=== PATIENT | female | born 2000 | race Caucasian/White ===

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

== ENCOUNTER 2022-01-24 13:04 | Emergency (ER) | payer MEDICAID, SELFPAY ==
[2022-01-24 13:05] VITALS: BP 113/76; PULSE 87; RESP 16; TEMP 36.2; O2SAT 96; BMI 23.8
--- NOTE | 2022-01-24 13:40 | EDS_ITS ---
HPI HPI - Female History of Present Illness Chief Complaint: Flank Pain Informant: patient Pain Quality: Positive for Cramping Current Severity: Gone Maximum Severity: Mild Bleeding Issue: Negative for Vaginal bleeding, Passing clots and Passing tissue Associated Symptoms Associated Symptoms: Negative for Dysuria, Frequency, Urgency and Hematuria Test: Positive Sexually: Positive for Active Control: No control P: 0 Ab: 0 Narrative Narrative: 21-year-old female history currently 11 weeks . Due date is August 16, 2022. She is G1, P0 Ab0. History of polycystic ovarian syndrome. Reportedly Rh-. Patient states she has had some intermittent cramping. Denies vaginal bleeding or discharge. Had nausea and vomiting x1 today. Denies any vaginal bleeding. No fever. No dysuria. She has had 3 ultrasound so far for this . Says she has a known single live IUP. [facility] she is changing her [facility] [facility]PER[facility] from [place] here to [place]. Prior similar symptoms: No Recent Illness/Hospitalization: No PFSH PFSH Medical History no medical history no medical history Home Medications sulfamethoxazole-trimethoprim 1 tab PO BID #10 tab 10/24/19 [Rx Last Taken Unknown] Allergy/AdvReac Type Severity Reaction Status Date / Time No Known Allergies Allergy Verified 01/24/22 13:06 Surgical History no surgical history Social History Smoking Status: Never smoker ROS ROS ED ROS Narrative Nausea vomiting. Cramping. Review of Systems ROS Unobtainable: Denies due to encephalopathy Constitutional Constitutional ED: Denies fever(s) Eyes Eyes: Denies change in vision ENT ENT ED: Denies ear pain Cardiovascular Cardiovascular: Denies chest pain Respiratory/Chest Respiratory/Chest: Denies dyspnea Gastrointestinal Gastrointestinal: Reports nausea and vomiting; Denies abdominal pain, constipation or diarrhea Genitourinary Genitourinary ED: Denies dysuria Musculoskeletal Musculoskeletal: Denies myalgias Integumentary Denies rash Neurologic Neurologic: Denies headache(s) Psychiatric Psychiatric: Denies depression Endocrine Endocrinology: Denies polyuria Hematologic/Lymphatic Hematologic/Lymphatic: Denies easy bruising Allergic/Immunologic Allergic/Immunologic ED: Denies urticaria EXAM Physical Exam Narrative Exam Narrative: 21-year-old female no acute distress. Vital signs stable afebrile. H EENT exam unremarkable. Neck nontender. Lungs clear to auscultation bilaterally. Heart regular rhythm no murmur. Abdomen soft. Nontender. Nondistended. Normal bowel sounds. No peritoneal signs. Gravid nontender uterus. Moving all 4 extremities. Nontender no edema. Back nontender. Neurologically she is awake and alert. Const Vital Signs: 01/24/22 13:05 Temperature 97.2 F L Temperature Source Temporal Pulse Rate 87 Respiratory Rate 16 Blood Pressure 113/76 Blood Pressure Mean 88 Pulse Ox 96 Oxygen Delivery Method Room Air Positive well nourished and well developed; Negative for obese, cachectic, contractures or unkempt General Appearance ED: well developed and NAD; Negative for unkempt, cachectic, contractures or pallor Nutritional Appearance: Negative for cachectic or obese HEENT Reports moist mucous membranes Negative for trauma or tenderness Eyes PERRL and EOMs intact bilaterally General Eye ED: Negative for pale conjunctiva or scleral icterus Neck no lymphadenopathy, supple and no JVD Thyroid: Negative for tender Chest Wall inspection of chest normal and palpation of chest normal Resp normal respiratory effort and clear to auscultation bilaterally Effort and Inspection: Negative for pain with movement Auscultation: Negative for rales, rhonchi or wheezes Cardio regular rate, regular rhythm, S1 normal heart sound, no murmurs and no JVD Rhythm: Negative for abnormal rhythm GI normal to inspection, nondistended, normoactive bowel sounds, soft to palpation, non-tender, non-distended and no masses Auscultation: normoactive bowel sounds; Negative for hyperactive bowel sounds or hypoactive bowel sounds Palpation: Negative for tender, guarding or rigid Back/Spine no CVA tenderness General Back: Negative for CVA tenderness Cervical Spine: Negative for cervical spine tenderness Thoracic Spine / Upper Back: Negative for thoracic spinal tenderness Lumbar Spine / Lower Back: Negative for lumbar spinal tenderness Extremity normal to inspection and full ROM General Extremety ED: Negative for edema or tenderness General Extremity: Negative for edema Neuro oriented x3 Sensorium / Orientation: alert, oriented to person, oriented to place and oriented to time Motor Exam: strength 5/5 throughout Psych mental status grossly normal Appearance: Negative for unkempt Mood & Affect: Negative for depressed or tearful Skin no rashes or lesions noted and no wounds General Skin Exam: Negative for jaundice or pallor MDM MDM MDM Narrative Medical decision making narrative: 21-year-old female 11 weeks . Complaining of flank pain that is since resolved. Denies any dysuria. Had nausea and vomiting x1 today. Denies any vaginal bleeding. Has had prior ultrasound showing a single live IUP with this . Repeat exam she is doing well at 2:27 PM. She will be discharged to home. Follow-up with your [employer] SUPERVISOR. Tylenol for pain. Return if worse. Lab Data Attestation: I reviewed the patient's lab results. Lab results narrative: Heart tones per nursing were 146. Urinalysis shows no nitrites no white cells. No red cells. And only 1+ bacteria. Labs: Laboratory Results - last 24 hr 01/24/22 14:00 Urine Color Yellow Urine Clarity Clear Urine pH 6.5 Ur Specific [place] 1.020 Urine Protein 15 H Urine Glucose (UA) Normal Urine Ketones Negative Urine Occult Blood Negative Urine Nitrite Negative Urine Bilirubin Negative Urine Urobilinogen Normal Ur Leukocyte Esterase Negative Urine RBC 0 SEEN Urine WBC 0 SEEN Ur Squamous Epith Cells 0-5 SEEN Urine Bacteria 1+ Urine Mucus 1+ Discharge Plan Triage Chief Complaint: Flank Pain Other Complaint: Nausea/Vomiting ED Provider: Travis Sanchez Dx/Rx/DC Orders Clinical Impression: Abdominal pain, First trimester , Hx of polycystic ovarian syndrome Instructions: Abdominal Pain, First Trimester Prescriptions: No Action sulfamethoxazole-trimethoprim 1 TABLET tablet 1 tab PO BID Qty: 10 RF: 0 Primary Care Provider: Minor Rucker Referrals: Minor Rucker DO [Primary Care Provider] - Inga Jason MD [STAFF PHYSICIAN] - Keep [place] appointment Activity Restrictions/Additional Instructions: Urine showed no signs of infection. heart tones have been normal. Tylenol for pain. Follow-up with your scheduled [facility]. Disposition Disposition: Home, Self Care
[2022-01-24 14:08] LABS: Red Blood Cells-Urine 0 SEEN /hpf (0-5); White Blood Cells 0 SEEN /hpf (0-5)
[2022-01-24 14:09] LABS: Color, Urine Yellow (Yellow); Glucose, Dipstick Normal (Normal); Ketone-Dipstick Negative (Negative); Leukocyte Esterase-Dipstick Negative /ul (Negative); Nitrite-Dipstick Negative (Negative); Occult Blood-Urine Negative /ul (Negative); Protein-Dipstick 15 mg/dl (Negative); Urine Bilirubin Dipstick Negative (Negative); Urine Clarity Clear (Clear); Urine Urobilinogen Normal (Normal); Urine pH 6.5 (5.0 - 8.0)
[2022-01-24 14:21] LABS: Bacteria 1+ /hpf (None Seen); Mucous, Urine 1+ /hpf (<or=2+); Squamous Epithelial Cells - UA 0-5 SEEN /hpf (5-10)
[2022-01-24 15:15] VITALS: BP 134/69; PULSE 72; RESP 15; O2SAT 99
== END 2022-01-24 15:15 | disposition home or self-care (01) ==
PROVIDERS: Emergency Provider Emergency Medicine; PCP Pediatrics; Visit Provider Emergency Medicine
DX: O26.891 Other specified pregnancy related conditions, first trimester (principal); R10.9 Unspecified abdominal pain; Z3A.11 11 weeks gestation of pregnancy
CPT/HCPCS: 81001; 99282

== ENCOUNTER 2022-01-26 14:21 | Emergency (ER) | payer MEDICAID, SELFPAY ==
[2022-01-26 14:22] VITALS: BP 127/91; PULSE 76; RESP 15; TEMP 36.6; O2SAT 98; BMI 23.0
--- NOTE | 2022-01-26 14:49 | CT_ITS ---
STUDY: CT ABDOMEN AND PELVIS WITH CONTRAST REASON FOR EXAM: Female, 21 years old. Right lower quadrant RADIATION DOSAGE (If Supplied By Facility): CTDIvol = ( 12.17 ) mGy, DLP = ( 576.07 ) mGycm TECHNIQUE: Transaxial images were obtained from the dome of the diaphragm to the symphysis pubis with oral contrast. Oral and amp; IV Gastrografin and amp; 100mL Isovue-300 was administered. Sagittal and coronal images were reconstructed. Individualized dose optimization techniques were used for this CT. COMPARISON: None. FINDINGS: The visualized lung bases are unremarkable. The visualized portions of the heart are within normal limits. Normal liver. Normal gallbladder and extrahepatic biliary system. Normal spleen. Normal pancreas. Normal bilateral adrenal glands. Normal right kidney. Normal left kidney. Normal visualized stomach. Normal small intestine. Normal colon. The appendix is seen on coronal recon images 47 through 53. The distal two thirds of the appendix are fluid-filled and shows some wall enhancement, diameter however the appendix is only 4.6 mm. Findings suggest early changes of appendicitis though there is no evidence of a full minute acute appendicitis. There is no induration of the periappendiceal fat there are no lymph nodes or associated fluid. Normal abdominal aorta. Normal inferior vena cava. Normal retroperitoneum. Normal urinary bladder. There is a gravid uterus. Normal abdominal wall. Normal osseous structures. CT/Abdomen/Pelvis WITH Contrast IMPRESSION: No suspicious solid organ abnormality No free intraperitoneal fluid, air, or suspicious adenopathy, there is subtle abnormality of the distal two thirds of the appendix which is fluid-filled and shows some subtle enhancement. However, no periappendiceal inflammation adenopathy or free fluid in the diameter of the appendix is 4.6 mm. Gravid uterus Electronically Signed: Elliott Espinoza MD at 17:07 EDT ,
--- NOTE | 2022-01-26 14:50 | EDS_ITS ---
HPI History of Present Illness Chief Complaint: Abd Pain Narrative Narrative: 21-year-old female who is currently 13 weeks comes to the emergency department for concern of appendicitis. She was recently seen by her HAND COMPOSITOR today, he referred her here for a CT scan of the abdomen pelvis to rule out any appendicitis, kidney stone. Patient did have heart tones completed at the HAND COMPOSITOR office, these were normal. Patient did have a normal ultrasound 2 weeks ago with her previous OB. Patient states that this pain has been ongoing for the last 5 days, getting much worse. Patient states that she cannot stand straight, she has increased pain with walking, every time she eats she feels very nauseated. Patient denies any fevers however does state to have chills. Denies any blood in stool or vomit PFSH PFSH Home Medications sulfamethoxazole-trimethoprim 1 tab PO BID #10 tab 10/24/19 [Rx Last Taken Unknown] cefdinir 300 mg PO BID 7 Days #14 cap 01/26/22 [Rx Last Taken Unknown] metronidazole 500 mg PO TID 7 Days #21 tab 01/26/22 [Rx Last Taken Unknown] ondansetron 4 mg PO Q8H PRN #10 tab 01/26/22 [Rx Last Taken Unknown] Allergy/AdvReac Type Severity Reaction Status Date / Time No Known Allergies Allergy Verified 01/26/22 14:25 Social History Smoking Status: Never smoker ROS ROS ED ROS Narrative Constitutional: Negative for fever, chills, weight loss, weakness Eyes: Negative for vision loss, vision change, double vision ENT: Negative for any sore throat, ear pain, congestion Cardiovascular: Negative for any chest pain, tightness, palpitations, racing heartbeat Respiratory: Negative for any cough, sputum production, hemoptysis, shortness of breath, shortness of breath on exertion, orthopnea Gastrointestinal: Negative for any diarrhea, constipation, blood in stool, blood in vomit. Positive for right lower quadrant abdominal pain, nausea and vomiting : Negative for any urinary frequency, incontinence, dysuria, retention, blood in urine Muscle skeletal: Negative for any muscle joint pain, stiffness, myalgias, arthralgias, neck pain, back pain Neurological: Negative for any headache, dizziness, syncope, numbness or tingling Skin: Negative for any rashes, lumps, itching, abrasions, lacerations Psychiatric: Negative for any depression, anxiety, stress, suicidal ideation, homicidal ideation Hematologic: Negative for any easy bruising, excessive bruising, easy bleeding Allergies: Negative for any eczema, hives, rash EXAM Physical Exam Narrative Exam Narrative: Vital signs reviewed. Patient appears well, patient appears nontoxic, vital signs are stable. HEET: Head normocephalic atraumatic, TMs clear bilaterally. Posterior pharynx is clear, moist mucous membranes. Nares clear bilaterally. Neck: Supple with no lymphadenopathy or tenderness. No signs of meningismus, n egative jolt sign. Cardiac: Regular rate and rhythm no murmurs gallops or rubs, equal peripheral pulses bilaterally. Respiratory: Lungs clear to auscultation bilaterally. No chest tenderness. Abdomen: Soft, nondistended. No abdominal bruit or pulsatile masses. No hepatosplenomegaly. Patient has right lower quadrant, suprapubic abdominal pain. Negative for any CVA tenderness. Extremities: No peripheral edema, no signs of gross trauma or deformity. Active full range of motion of all extremities. Neuro: Cranial nerves II through XII intact, no focal neurological deficits. Skin: Clean dry and intact with no rash, purpura, petechiae, vesicles or pustules. Backslash flank: No CVA tenderness, no midline spinal tenderness, no deformity. Psych: Normal mood and affect. No SI, HI or acute psychosis. Const Vital Signs: 01/26/22 14:22 01/26/22 17:15 Temperature 98 F Temperature Source Temporal Pulse Rate 76 Respiratory Rate 15 18 Blood Pressure 127/91 H Blood Pressure Mean 103 Pulse Ox 98 Oxygen Delivery Method Room Air Positive well nourished and well developed General Appearance ED: well developed MDM MDM MDM Narrative Medical decision making narrative: Patient appears well, patient appears nontoxic, vital signs are stable. Patient presents the emerge department with 5 days of right lower quadrant abdominal pain, she was referred here by her HAND COMPOSITOR to get a CT scan to rule out any acute appendicitis. Patient did receive a full work-up, patient CBC was unremarkable, patient's chemistries showed no acute process. Patient's urinalysis was negative for any infection. Patient did receive a CT scan of the abdomen pelvis with IV and p.o. contrast, this showed no free intraperitoneal fluid, air or suspicious adenopathy. There is subtle abnormality of the distal two thirds of the appendix which is fluid-filled and shows some subtle enhancement. However no periappendiceal inflammation adenopathy or free fluid in the diameter of the appendix is 4.6 mm. uterus. Patient did feel better after IV fluid, IV Zofran. I did speak with the surgeon, he agrees that this is not acute appendicitis however does recommend oral antibiotics. I spoke with the patient's HAND COMPOSITOR, she also agrees the patient can be placed on antibiotics and will follow up closely in 2 days. On reassessment, patient was in no distress, I told the patient and her mother the plan, they are both happy with the plan of care. Patient be placed on Flagyl 3 times a day, cefdinir twice a day for 1 week. She will follow up closely with HAND COMPOSITOR, and given strict return precautions to return for any worsening pain, fever, chills, nausea vomiting. Patient is stable for discharge Lab Data Attestation: I reviewed the patient's lab results. Labs: Laboratory Results - last 24 hr 01/26/22 01/26/22 01/26/22 15:30 15:30 17:10 WBC 10.7 RBC 4.70 Hgb 13.9 Hct 39.4 MCV 83.8 MCH 29.6 MCHC 35.3 RDW Std Deviation 37.5 RDW Coeff of Sandra 12.4 Plt Count 265 MPV 9.4 Immature Gran % (Auto) 0.500 Neut % (Auto) 68.2 Lymph % (Auto) 23.8 Thomas % (Auto) 6.0 Eos % (Auto) 1.1 Baso % (Auto) 0.4 Absolute Neuts (auto) 7.3 Absolute Lymphs (auto) 2.54 Nucleated RBC % 0 Sodium 135 L Potassium 3.6 Chloride 105 Carbon Dioxide 23.0 Anion Gap 7 BUN 10 Creatinine 0.57 Estim Creat Clear Calc 153.10 Est GFR (MDRD) Af Amer 173 Est GFR (MDRD) Non-Af 143 BUN/Creatinine Ratio 17.5 Glucose 78 Calcium 9.4 Total Bilirubin 0.60 AST 15 ALT 19 Alkaline Phosphatase 67 Total Protein 7.9 Albumin 3.8 Globulin 4.1 Albumin/Globulin Ratio 0.9 Lipase 49 L Urine Color Yellow Urine Clarity Clear Urine pH 7.0 Ur Specific [place] 1.010 Urine Protein Negative Urine Glucose (UA) Normal Urine Ketones 15 H Urine Occult Blood Negative Urine Nitrite Negative Urine Bilirubin Negative Urine Urobilinogen Normal Ur Leukocyte Esterase Negative Urine RBC 0 SEEN Urine WBC 0-5 SEEN Ur Squamous Epith Cells 0-5 SEEN Urine Bacteria RARE Urine Mucus 0 SEEN Radiography Diagnostic Testing: Clinical Impression(s) from Imaging Studies Abdomen/Pelvis CT 01/26/22 14:49 IMPRESSION: No suspicious solid organ abnormality No free intraperitoneal fluid, air, or suspicious adenopathy, there is subtle abnormality of the distal two thirds of the appendix which is fluid-filled and shows some subtle enhancement. However, no periappendiceal inflammation adenopathy or free fluid in the diameter of the appendix is 4.6 mm. Gravid uterus Electronically Signed: Elliott Espinoza MD at 17:07 EDT , Discharge Plan Triage Chief Complaint: Abd Pain ED Midlevel Provider: Arsenio Schmidt ED Provider: Arsenio Benz Dx/Rx/DC Orders Clinical Impression: Abdominal pain Instructions: Abdominal Pain Prescriptions: New cefdinir 300 mg capsule 300 mg PO BID 7 Days Qty: 14 RF: 0 metronidazole 500 mg tablet 500 mg PO TID 7 Days Qty: 21 RF: 0 ondansetron 4 mg tablet,disintegrating 4 mg PO Q8H PRN (Reason: nausea and vomiting) Qty: 10 RF: 0 No Action sulfamethoxazole-trimethoprim 1 TABLET tablet 1 tab PO BID Qty: 10 RF: 0 Stand Alone Forms: ED Work / School Excuse Primary Care Provider: Minor Rucker Referrals: Minor Rucker DO [Primary Care Provider] - Activity Restrictions/Additional Instructions: Please take medications as prescribed. Please follow-up with your HAND COMPOSITOR this upcoming Saturday Print Language: Korean Disposition Disposition: Home, Self Care
[2022-01-26] MEDS: 0.9% Normal Saline 1,000 ML 1000 ML IV (15:30)
[2022-01-26] MEDS: Ondansetron 4 MG/2 ML Vial IV (15:30)
[2022-01-26 15:41] LABS: Absolute Lymphocyte Count 2.54 X10^3/uL (0.83-4.51); Absolute Neutrophil Count 7.3 X10^3/uL (2.0-7.7); Basophil# 0.04 X10^3/uL; Basophil% 0.4 % (0-1); Eosinophil# 0.12 X10^3/uL; Eosinophils% 1.1 % (0-5); Hematocrit 39.4 % (37-47); Hemoglobin 13.9 g/dL (12.0-15.0); Lymphocyte # 2.54 X10^3/ul (0.83-4.51); Lymphocyte % 23.8 % (19-41); Mean Corp Hgb Conc 35.3 g/dL (32-36); Mean Corpuscular Hgb 29.6 pg (27.0-32.0); Mean Corpuscular Volume 83.8 fL (81-99); Mean Platelet Vol. 9.4 fl (6.2-12.0); Monocyte# 0.64 X10^3/uL; NRBC Flagged by Analyzer 0 % (0-5); Neutrophil # 7.29 X10^3/uL (2.7-7.7); Neutrophil % 68.2 % (47-70); Platelet Count 265 K/mm3 (150-450); RBC Distribution Width CV 12.4 % (11.6-14.6); RBC Distribution Width SD 37.5 fl (35.1-43.9); White Blood Count 10.7 K/mm3 (4.4-11.0)
[2022-01-26 16:18] LABS: ALB/GLOB Ratio 0.9 RATIO (0.9-2.4); AST(SGOT) 15 U/L (15-37); Alanine Aminotransfer ALT/SGPT 19 U/L (13-56); Albumin, Serum 3.8 g/dL (3.2-5.0); Alkaline Phosphatase 67 U/L (45-117); Anion Gap 7 (5-15); BUN 10 mg/dL (7-18); BUN/Creat Ratio 17.5 RATIO (10-20); Calcium,Total 9.4 mg/dL (8.5-10.1); Chloride 105 mmol/L (98-107); Creatinine, Serum 0.57 mg/dL (0.55-1.02); EST Glomerular Filtration Rate 143 mL/min (>60); Est Glom Filt Rate - Afr Amer 173 mL/min (>60); Globulin 4.1 g/dL (2.2-4.2); Glucose 78 mg/dL (74-106); Lipase 49 U/L (73-393); Potassium 3.6 mmol/L (3.5-5.1); Protein, Total 7.9 g/dL (6.4-8.2); Sodium Level 135 mmol/L (136-145)
[2022-01-26 17:15] VITALS: RESP 18
[2022-01-26 17:20] LABS: Mucous, Urine 0 SEEN /hpf (<or=2+); Red Blood Cells-Urine 0 SEEN /hpf (0-5)
[2022-01-26 17:23] LABS: Color, Urine Yellow (Yellow); Glucose, Dipstick Normal (Normal); Ketone-Dipstick 15 mg/dl (Negative); Leukocyte Esterase-Dipstick Negative /ul (Negative); Nitrite-Dipstick Negative (Negative); Occult Blood-Urine Negative /ul (Negative); Protein-Dipstick Negative (Negative); Urine Bilirubin Dipstick Negative (Negative); Urine Clarity Clear (Clear); Urine Urobilinogen Normal (Normal)
[2022-01-26 17:39] LABS: Bacteria RARE /hpf (None Seen); Squamous Epithelial Cells - UA 0-5 SEEN /hpf (5-10); White Blood Cells 0-5 SEEN /hpf (0-5)
[2022-01-26 18:32] VITALS: BP 118/59; PULSE 71; RESP 16; O2SAT 98
== END 2022-01-26 18:32 | disposition home or self-care (01) ==
PROVIDERS: Nurse Practitioner; Emergency Provider Emergency Medicine; PCP Pediatrics; Visit Provider Emergency Medicine
DX: O26.891 Other specified pregnancy related conditions, first trimester (principal); R10.9 Unspecified abdominal pain; Z3A.13 13 weeks gestation of pregnancy
CPT/HCPCS: 74177; 80053; 81001; 83690; 85025; 96361; 96374; 99283; J7030; A4216; J2405

== ENCOUNTER 2022-08-02 16:50 | Inpatient (IN) | payer MEDICAID, SELFPAY ==
[2022-08-02] VITALS (15 sets, daily range): BP systolic 138–177; BP diastolic 80–107; PULSE 64–93; TEMP 36.7–37.1; O2SAT 97; BMI 29.5
[2022-08-02] MEDS: 0.9% Saline Lock 10 ML Syringe IV (16:31)
--- NOTE | 2022-08-02 16:45 | HP.PCM.OB_ITS ---
HPI - General General Date of Admission: 08/02/22 Date of Service: 08/02/22 HPI Narrative LORE BUTLER, is a 21 F who presents from office. She had a headache earlier today that has resolved. Maternal Data Information Final KIM: 08/13/22 Gestational age: 38&3 PFSH PFSH Medical History (Updated 08/02/22 @ 18:14 by Teena Mckeon) Asthma Depression Preeclampsia Home Medications vits no.130-ferrous fum 27 mg iron-folic acid 800 mcg tablet ( Vitamin) tab 08/02/22 [History Last Taken Unknown] Allergy/AdvReac Type Severity Reaction Status Date / Time No Known Allergies Allergy Verified 01/26/22 14:25 Social History Smoking Status: Former smoker History Elective abortions Hx Para 0 Spontaneous abortions Hx # Term Pregnancies Ectopic pregnancies Hx # Pregnancies Multiple births # of living children NST FHR Rate Baby A Baseline: 135 Variability:: Moderate Accelerations:: 15 x 15 Decelerations:: None Uterine Activity:: quiet Vital Signs Vital Signs Vital Signs: 08/02/22 16:26 08/02/22 16:26 08/02/22 16:26 Temperature Temperature Source Pulse Rate 87 Blood Pressure 142/98 H BP Systolic 142 BP Diastolic 98 Pulse Ox 97 08/02/22 16:26 08/02/22 16:26 08/02/22 16:26 Temperature 98.8 F Temperature Source Temporal Pulse Rate 93 Blood Pressure BP Systolic BP Diastolic Pulse Ox 08/02/22 16:31 08/02/22 16:31 08/02/22 16:36 Temperature Temperature Source Pulse Rate 88 Blood Pressure 154/93 H BP Systolic 154 BP Diastolic 93 Pulse Ox 97 08/02/22 16:36 Temperature Temperature Source Pulse Rate 77 Blood Pressure BP Systolic BP Diastolic Pulse Ox Weight Weight: 188 lb 11.451 oz Body Mass Index (BMI) 29.5 Physical Exam Narrative: cvx - 3/70/-3 Labs Labs Labs: Blood Type O NEGATIVE Antibody Screen NEGATIVE Hct 33.1 % (37-47) L Hgb 11.0 g/dL (12.0-15.0) L See [facility] H&P Assessment & Plan (1) Preeclampsia: COMMENT: @ 38&3 PLAN: Admit to L&D Preeclampsia labs pending. Per elevated protein & elevated BP patient meets d iagnostic criteria. Induction - will start pitocin later tonight GBS negative EFW - less than 4500g, patient with adequate pelvis COVID test ordered Routine care
[2022-08-02 16:57] LABS: Hematocrit 33.1 % (37-47); Mean Corp Hgb Conc 33.2 g/dL (32-36); Mean Corpuscular Hgb 28.3 pg (27.0-32.0); Mean Corpuscular Volume 85.1 fL (81-99); Mean Platelet Vol. 11.3 fl (6.2-12.0); Platelet Count 219 K/mm3 (150-450); RBC Distribution Width CV 13.9 % (11.6-14.6); RBC Distribution Width SD 41.6 fl (35.1-43.9); Red Blood Count 3.89 M/mm3 (4.2-5.4); White Blood Count 10.9 K/mm3 (4.4-11.0)
[2022-08-02 17:14] LABS: AST(SGOT) 21 U/L (15-37); Alanine Aminotransfer ALT/SGPT 18 U/L (13-56); Creatinine, Serum 0.66 mg/dL (0.55-1.02); EST Glomerular Filtration Rate 120 mL/min (>60); Est Glom Filt Rate - Afr Amer 145 mL/min (>60); Estimated Creatinine Clearance 132.22 ml/min; Uric Acid 6.7 mg/dL (2.6-6.0)
[2022-08-02] MEDS: Lactated Ringers 1,000 ML 50 ML IV (22:38)
[2022-08-02] MEDS: Oxytocin 15 Units/NS 250ml 15 UNITS/250 ML IV.SOLN 2 UNITS IV (22:41)
[2022-08-03] VITALS (57 sets, daily range): BP systolic 119–178; BP diastolic 56–109; PULSE 57–103; RESP 15–19; TEMP 36.2–37.6; O2SAT 91–100
[2022-08-03] MEDS: LACTATED RINGERS 500 ML 999 ML IV ×3 (04:28→12:21)
--- NOTE | 2022-08-03 08:48 | PCM.PN.BLA ---
Progress Note Pt doing well. Resting comfortable but feeling ctx's. Assessment & Plan Assessment/Plan (1) Preeclampsia: PLAN: No persistent severe range BP's. Mild to normal BP's. She has no pre e symptoms this morning. Cvx 460/-1, head well applied. AROM performed in usual fashion with return of clear fluid. IUPC placed. Category 1 tracing.
[2022-08-03] MEDS: Lactated Ringers 1,000 ML 50 ML IV (09:03)
[2022-08-03] MEDS: fentaNYL-bupivacaine (epidural) 100 ML BAG EPIDURAL (14:07)
[2022-08-03] MEDS: Lactated Ringers 1,000 ML 200 ML IV (16:20)
--- NOTE | 2022-08-03 18:11 | PCM.PN.BLA ---
Progress Note Pt pushing with RN in hands and knees. She offers no complaints at this time. Comfortable with epidural. Assessment & Plan Assessment/Plan (1) Preeclampsia: PLAN: - No persistent severe range BP's - She still has no symptoms of pre e - Continue to closely monitor and discussed possible mag gtt if needed (2) 38 weeks gestation of : PLAN: - Patient has been pushing for about 3 hours - Good maternal pushing effort - Will reassess station once out of hands and knees
[2022-08-03] MEDS: Labetalol (Prefilled) 20 MG/4 ML IV (19:05)
[2022-08-03] MEDS: Magnesium Sulfate 4gm/100mL 4 GM/100 ML IV.SOLN. IV (19:12)
[2022-08-03] MEDS: Sodium Citrate/Citric Acid 30 ML UDC PO (19:22)
[2022-08-03] MEDS: Magnesium Sulfate 20 GM/500 ML BAG IV (19:27)
[2022-08-03] MEDS: Cefazolin 2 GM in 0.9% Normal Saline 100 ML IV (19:31)
--- NOTE | 2022-08-03 20:43 | PCM.PN.BLA ---
Progress Note Delayed entry. At bedside to check on pt. Comfortable with epidural. Assessment & Plan Assessment/Plan (1) 38 weeks gestation of : PLAN: Patient has been pushing for 4 hours with good effort. at 0 station. Recommend section for arrest of descent. Discussed r/b/a to a section and patient desires to proceed. (2) Preeclampsia:
--- NOTE | 2022-08-03 20:45 | PCM.OPRPT ---
Problems Associated Problem List Diagnoses (1) 38 weeks gestation of : (2) Preeclampsia: Report of Operation Date of Procedure: 08/03/22 Pre-Operative Diagnosis: 38 week gestation, pre eclampsia with severe features, arrest of descent Post-Operative Diagnosis: As above CPD Surgery/Procedure Performed:: Primary low transverse section via pfannenstiel incision Description of Surgical Findings:: VMI in cephalic presentation. Narrow pelvis and CPD noted. Normal appearing uterus and bilateral adnexa. Normal appearing placenta with 3 VC. Surgeon: Kate Farias sulfonation equipment operator: Daron Gallegos sulfonation equipment operator: Justin ROMAN Type of Anesthesia: Epidural Special Medications: None Specimen's removed: Placenta Drains: Quesada Estimated Blood Loss (mL): 800 Fluids Replaced: 750 cc Description of Procedure: The patient was taken back to the operating room where epidural anesthesia was found to be adequate. She was prepped and draped in the dorsal position with leftward tilt. A Pfannenstiel skin incision was made using the scalpel. The incision was carried down to the underlying layer of fascia. The fascia was incised in the midline. The fascia was extended laterally using blunt dissection. The fascia was dissected off the rectus muscles using blunt dissection. The rectus muscles were in the midline. The peritoneum was entered bluntly with good visualization of the bladder, and the peritoneal incision was extended bluntly. A bladder blade was inserted. A low transverse incision was made on the uterus with a scalpel. The uterine incision was extended bluntly. An initial attempt with my right hand was made to elevate the head of the pelvis, although the pelvis was felt to be very narrow. Dr. Daron Gallegos made 1 attempt as well and also noted a narrow pelvis. Another attempt using my left hand this time was made, and the 's head was able to be flexed and brought to the hysterotomy. The head followed by the shoulders and body of the were delivered atraumatically, and without any excessive force or delay. The cord was clamped and cut immediately. The infant was handed off to the awaiting nursery staff. Cord gases were sent. The placenta was removed with manual extraction and noted to be normal-appearing with a three-vessel cord. The uterus was cleared of all clot and debris. The uterus was exteriorized. The hysterotomy was closed with Vicryl in a running locked fashion. A second imbricating layer was performed. Hemostasis was noted. The uterus was placed back into the abdomen. Cora was placed over the hysterotomy and lower uterine segment. The peritoneum was closed with Vicryl in a running fashion. The fascia was closed with strata fix in running fashion. The subcutaneous space was irrigated and made hemostatic with the Bovie cautery. The subcutaneous space was reapproximated with Vicryl. The skin was closed in a subcuticular fashion using Monocryl. A dressing was placed. Instrument, sponge, needle counts were correct. The patient was taken to recovery room in stable condition. Dr. Daron Gallegos assisted with draping the patient, delivery of the , and the first layer closure of the uterus. Once the first layer was closed, Justin ROMAN was present for assistance. Justin assisted with closure. Grafts/Implants Used: None Complications None Admit VTE Documentation VTE Present on Admission: No VTE Mechan Device Prophylaxis: SCD's
[2022-08-03] MEDS: Oxytocin 15 Units/NS 250ml 15 UNITS/250 ML IV.SOLN 83 UNITS IV (21:08)
[2022-08-03] MEDS: Lactated Ringers 1,000 ML 100 ML IV (21:08)
[2022-08-03] MEDS: Ketorolac 30 MG/ML Syringe IV (21:17)
[2022-08-03] MEDS: Acetaminophen 500 MG Tablet 1000 MG PO (21:17)
[2022-08-03] MEDS: Labetalol 100 MG Tablet PO (22:13)
[2022-08-04] VITALS (22 sets, daily range): BP systolic 104–132; BP diastolic 56–85; PULSE 73–97; RESP 16–18; TEMP 36.1–37.3; O2SAT 95–99
[2022-08-04] MEDS: Ketorolac 30 MG/ML Syringe IV ×3 (03:17→16:04)
[2022-08-04] MEDS: Acetaminophen 500 MG Tablet 1000 MG PO ×4 (03:17→21:25)
[2022-08-04] MEDS: Magnesium Sulfate 20 GM/500 ML BAG IV ×2 (05:10→14:38)
[2022-08-04 06:19] LABS: Hematocrit 27.4 % (37-47); Hemoglobin 8.9 g/dL (12.0-15.0); Mean Corp Hgb Conc 32.5 g/dL (32-36); Mean Corpuscular Hgb 28.2 pg (27.0-32.0); Mean Corpuscular Volume 86.7 fL (81-99); Mean Platelet Vol. 11.3 fl (6.2-12.0); Platelet Count 189 K/mm3 (150-450); RBC Distribution Width CV 14.1 % (11.6-14.6); Red Blood Count 3.16 M/mm3 (4.2-5.4); White Blood Count 18.6 K/mm3 (4.4-11.0)
[2022-08-04] MEDS: Senna/Docusate Sodium 1 Tablet PO (10:26)
--- NOTE | 2022-08-04 11:12 | PCM.PN.OB ---
Subjective Subjective Pt is doing well. She denies headache or vision changes. No lightheadedness or dizziness. No chest pain or shortness of breath. Quesada is being removed this morning. She is tolerating a regular diet without nausea or vomiting. Lochia is normal. She is breast-feeding. She offers no complaints this morning. Pain is well controlled. Objective Data Objective Data Vital Signs: Vital Signs Temp Pulse Resp BP Pulse Ox O2 Del Method 98.1 F 89 16 115/62 96 Room Air 08/04/22 10:31 08/04/22 10:31 08/04/22 10:31 08/04/22 10:31 08/04/22 10:31 08/04/22 10:31 Oxygen Delivery Method Room Air Weight: 188 lb 11.451 oz Body Mass Index (BMI) 29.5 Intake & Output: Intake and Output for Last 24 Hours 08/02/22 08/03/22 08/04/22 23:59 23:59 23:59 Intake Total 4780.93 / 4780.93 1160.83 / 1160.83 Output Total 1965 / 1965 900 / 900 Balance 2815.93 / 2815.93 260.83 / 260.83 Lab / Micro Data Result Diagrams: 08/04/22 06:10 08/02/22 16:40 Labs: Laboratory Results - last 24 hr 08/04/22 06:10: WBC 18.6 H, RBC 3.16 L, Hgb 8.9 L, Hct 27.4 L, MCV 86.7, MCH 28.2, MCHC 32.5, RDW Std Deviation 43.0, RDW Coeff of Sandra 14.1, Plt Count 189, MPV 11.3 Micro: Microbiology 08/02/22 20:05 Nasal Secretion SARS-CoV-2 Antigen (Rapid) - Final Physical Exam Const alert and no apparent distress General Appearance: comfortable HEENT normocephalic Resp normal respiratory effort GI soft to palpation GI Narrative: ATTP, dressing intact, no acute peritoneal signs Extremity no calf tenderness Assessment & Plan (1) Preeclampsia: (2) Delivery by section: PLAN: POD#1 s/p section for arrest of descent. - Hgb 8.9. No symptoms of anemia this morning and HDS. Recheck CBC in AM and give IV iron tomorrow - Preeclampsia: Cont mag gtt for 24 hours . No pre e symptoms this morning. UOP adequate. BP normal so discontinue Labetalol for now - Continue routine post op care
--- NOTE | 2022-08-04 14:02 | CASEMGMT ---
SW Note Referral Source: hotel directorboiler tester Reason: History of anxiety and depression SW met with MOB in the room along with the FOB and her mother. MOB gave permission for this global technical writer to speak to her in the presence of her visitors. MOB: Danny Grijalva PNC: [facility] Control: None Baby: Jj Grijalva V (Oskar) : 08/[birth year] Weight: 6# 6 ounces Aircraft Inspector: Samuel Lopezs [place] Breast feeding. SW asked how breast feeding is going and MOB said that her and the nb are learning. Housing: MOB reports that she resides with the FOB and his 2 sister. MOB said that on the other side of the house the FOB's grandparents reside. MOB said that the house is adequate in space. Transportation: MOB reports access to transportation and can drive when medically cleared Supplies: MOB reports she has carseat, diapers, bassinet, crib and clothes for the nb. Supports: MOB reports that the FOB and his family are supportive as well as the MOB's family. The MOB's family are also supportive and reside locally. Education Level: The MOB graduated high school. No learning issues. MOB graduated from E[employer] Service program at the [employer] Employment Financial: MOB works at the [employer] in [place]. MOB will take 8 weeks off work with the maternal grandmother and FOB watching the nb. Agency Involvement: MOB reports she plans to enroll the nb on her insurance. MOB reports she would like a WIC referral. MOB declined [facility] referral. MOB declined any legal, counseling or CSB involvement. FOB: Jj Time Together: 3 years Involved with the nb: Yes Employment: [employer]. FOB will return to work on Saturday. FOB has a completed construction program at the [employer] FOB has no other children. FOB MH/AOD and DV: FOB reports he has undiagnosed anxiety and depression. He denied any SI/HI and is not on medication Maternal MH history: MOB reports she is not diagnosed with anxiety and depression. MOB has not taken any medication for depression or anxiety. MOB reports no psych hospitalization. MOB denied alcohol or drug use. MOB is former smoker SW educated MOB on shaken baby, PPD, Safe sleeping. MOB reports no concerns or issues. Plan: Home with nb Nora MENDOZA
--- NOTE | 2022-08-04 15:58 | CASEMGMT ---
KINGA provided FOB and MOB with [facility] Food stamps, medicaid and ambrose assistance application. KINGA completed WIC application on line. Nora MENDOZA
[2022-08-04] MEDS: 0.9% Saline Lock 10 ML Syringe IV (18:31)
[2022-08-04] MEDS: Ibuprofen 600 MG Tablet PO (21:25)
[2022-08-05] VITALS (9 sets, daily range): BP systolic 127–145; BP diastolic 70–91; PULSE 72–88; RESP 16–18; TEMP 36.4–37.4; O2SAT 97
[2022-08-05] MEDS: Acetaminophen 500 MG Tablet 1000 MG PO ×3 (03:37→18:15)
[2022-08-05] MEDS: Ibuprofen 600 MG Tablet PO ×3 (03:37→18:15)
[2022-08-05 05:26] LABS: Hemoglobin 8.1 g/dL (12.0-15.0); Mean Corp Hgb Conc 32.4 g/dL (32-36); Mean Corpuscular Hgb 28.5 pg (27.0-32.0); Mean Platelet Vol. 11.1 fl (6.2-12.0); Platelet Count 204 K/mm3 (150-450); RBC Distribution Width CV 14.8 % (11.6-14.6); RBC Distribution Width SD 45.9 fl (35.1-43.9); Red Blood Count 2.84 M/mm3 (4.2-5.4); White Blood Count 16.5 K/mm3 (4.4-11.0)
--- NOTE | 2022-08-05 07:01 | PCM.PN.OB ---
Subjective Subjective Patient is doing well. She feels better now that the magnesium is off. She denies headache or vision changes. Pain is well controlled. She is ambulating and spontaneously voiding without difficulty. She is tolerating regular diet without nausea or vomiting. She offers no complaints today. Lochia normal. . No CP or SOB. Objective Data Objective Data Vital Signs: Vital Signs Temp Pulse Resp BP Pulse Ox O2 Del Method 97.6 F L 82 16 127/70 H 96 Room Air 08/05/22 02:07 08/05/22 02:07 08/05/22 02:07 08/05/22 02:07 08/04/22 19:58 08/05/22 02:07 Oxygen Delivery Method Room Air Weight: 188 lb 11.451 oz Body Mass Index (BMI) 29.5 Intake & Output: Intake and Output for Last 24 Hours 08/03/22 08/04/22 08/05/22 23:59 23:59 23:59 Intake Total 4780.93 / 4780.93 2409.90 / 2409.90 Output Total 1964 / 1964 2200 / 2200 Balance 2815.93 / 2815.93 209.90 / 209.90 Lab / Micro Data Result Diagrams: 08/05/22 05:15 08/02/22 16:40 Labs: Laboratory Results - last 24 hr 08/05/22 05:15: WBC 16.5 H, RBC 2.84 L, Hgb 8.1 L, Hct 25.0 L, MCV 88.0, MCH 28.5, MCHC 32.4, RDW Std Deviation 45.9 H, RDW Coeff of Sandra 14.8 H, Plt Count 204, MPV 11.1 Micro: Microbiology 08/02/22 20:05 Nasal Secretion SARS-CoV-2 Antigen (Rapid) - Final Physical Exam Const alert and no apparent distress General Appearance: comfortable Resp normal respiratory effort GI soft to palpation GI Narrative: ATTP, non acute, dressing c/d/i Extremity no calf tenderness Assessment & Plan (1) Delivery by section: PLAN: POD#2 s/p section for arrest of descent - Doing well - Pain controlled - HDS - - Dispo: Routine post op care (2) Preeclampsia: PLAN: - S/p 24 hrs mag gtt - No pre e symptoms this AM - BP's are normal - Continue to monitor BP's off mag (3) Acute blood loss anemia: PLAN: - Hgb stable today - No symptoms of anemia - Will give 1 dose of IV iron
[2022-08-05] MEDS: Senna/Docusate Sodium 1 Tablet PO (08:01)
[2022-08-05] MEDS: Sodium Ferric Gluconat 250 MG in 0.9% Normal Saline 250 ML 135 MG IV (08:02)
[2022-08-05] MEDS: 0.9% Saline Lock 10 ML Syringe IV ×2 (08:03→10:06)
[2022-08-05] MEDS: Labetalol 100 MG Tablet PO (22:11)
[2022-08-06] MEDS: Acetaminophen 500 MG Tablet 1000 MG PO ×4 (00:21→18:38)
[2022-08-06] MEDS: Ibuprofen 600 MG Tablet PO ×4 (00:21→18:39)
[2022-08-06 01:08] VITALS: BP 137/83; PULSE 88
[2022-08-06 01:27] VITALS: BP 137/83; PULSE 88; RESP 17; TEMP 37.1
[2022-08-06] MEDS: oxyCODONE 5 MG Tablet PO ×4 (02:06→23:01)
[2022-08-06 06:27] VITALS: BP 136/82; PULSE 99
--- NOTE | 2022-08-06 08:50 | PCM.PN.OB ---
Subjective Subjective Doing well per patient and nursing staff. Ambulating and taking PO without difficulty. Voiding and passing flatus. Pain controlled. Baby in special care nursery. , services for assistance. Denies headache, visual changes, chest pain, shortness of breath, leg pain or increased bleeding. Lochia normal. Objective Data Objective Data Vital Signs: Vital Signs Temp Pulse Resp BP Pulse Ox O2 Del Method 98.8 F 99 17 136/82 H 97 Room Air 08/06/22 01:27 08/06/22 06:27 08/06/22 01:27 08/06/22 06:27 08/05/22 08:12 08/05/22 14:00 Oxygen Delivery Method Room Air Weight: 188 lb 11.451 oz Body Mass Index (BMI) 29.5 Intake & Output: Intake and Output for Last 24 Hours 08/04/22 08/05/22 08/06/22 23:59 23:59 23:59 Intake Total 2409.90 / 2409.90 270 / 270 Output Total 2200 / 2200 Balance 209.90 / 209.90 270 / 270 Lab / Micro Data Result Diagrams: 08/05/22 05:15 08/02/22 16:40 Micro: Microbiology 08/02/22 20:05 Nasal Secretion SARS-CoV-2 Antigen (Rapid) - Final ROS Constitutional Constitutional: Reports systems reviewed and no addt'l complaints, except as documented; Denies headache(s) Eyes Eyes: Denies acute decrease in peripheral vision, blurry vision or change in vision ENT HEENT: Reports systems reviewed and no addt'l complaints, except as documented Cardiovascular Cardiovascular: Denies chest pain or dizziness Respiratory/Chest Respiratory/Chest: Denies cough, dyspnea, dyspnea on exertion, shortness of breath at rest or shortness of breath with exertion Gastrointestinal Gastrointestinal: Denies abdominal pain, diarrhea, nausea or vomiting Genitourinary Genitourinary: Denies abdominal discomfort Musculoskeletal Musculoskeletal: Denies limited range of motion Integumentary Integumentary: Reports systems reviewed and no addt'l complaints, except as documented Neurologic Neurologic: Reports systems reviewed and no addt'l complaints, except as documented Psychiatric Psychiatric: Reports systems reviewed and no addt'l complaints, except as documented Endocrine Endocrinology: Reports systems reviewed and no addt'l complaints, except as documented Hematologic/Lymphatic Hematologic/Lymphatic: Reports systems reviewed and no addt'l complaints, except as documented Allergic/Immunologic Allergic/Immunologic: Reports systems reviewed and no addt'l complaints, except as documented Physical Exam Const alert and oriented x3 General Appearance: cooperative Orientation / Consciousness: awake, oriented to person, oriented to place and oriented to time Exam Limitations: no limitations HEENT normocephalic Head and Scalp: normal to inspection, normocephalic and atraumatic Face and Sinus: normal facial exam Eyes General Eye: normal appearance of both eyes Neck full ROM Chest Chest: symmetrical chest wall rise Resp normal respiratory effort and normal air movement Auscultation: clear to auscultation bilaterally Cardio regular rate, regular rhythm, S1 normal heart sound, S2 normal heart sound, no murmurs, no rub, no gallops and no clicks GI normal to inspection, nondistended, normoactive bowel sounds and non-tender GI Narrative: dressing dry and intact Back/Spine normal ROM Extremity normal to inspection and full ROM Skin no rashes or lesions noted Neuro oriented x3, CN's II-XII intact bilaterally and moves all extremities Sensorium / Orientation: awake, alert and oriented to person Motor Exam: clonus absent Deep Tendon Reflexes: Rt Patellar (L4): 2+ and Lt Patellar (L4): 2+ Assessment & Plan (1) Acute blood loss anemia: (2) Delivery by section: (3) Preeclampsia: PLAN: Plan 1) Routine postoperative care 2) services 3) I&O 4) Will increase labetalol from 100mg PO BID to 200mg PO BID 5) Follow up in 3 days for PP blood pressure evaluation. Check blood pressure BID 6)) Pain management 7) Acute blood loss, d/c on iron supplement, 8)Asymptomatic D/C to hotel status
[2022-08-06 10:00] VITALS: BP 148/100; PULSE 92; RESP 16; TEMP 36.6
[2022-08-06] MEDS: Labetalol 100 MG Tablet PO ×2 (10:23→21:44)
[2022-08-06] MEDS: Senna/Docusate Sodium 1 Tablet PO (10:23)
[2022-08-06 14:00] VITALS: BP 132/84; PULSE 104; RESP 16; TEMP 36.9
--- NOTE | 2022-08-06 18:38 | PCM.DC.SUM ---
Providers Date of Admission: 08/02/22 Primary Care Physician: Dr. Minor Rucker DO Reason For Visit: RULE OUR PRE ECLAMPSIA Diagnosis Discharge Diagnosis (1) Acute blood loss anemia: Status: Acute Code(s): D62 - Acute posthemorrhagic anemia (2) Delivery by section: Status: Acute (3) Preeclampsia: Status: Acute Code(s): O14.90 - Unspecified pre-eclampsia, unspecified trimester Plan 1) Routine postoperative care 2) services 3) I&O 4) Will increase labetalol from 100mg PO BID to 200mg PO BID 5) Follow up in 3 days for PP blood pressure evaluation. Check blood pressure BID 6)) Pain management 7) Acute blood loss, d/c on iron supplement, 8)Asymptomatic D/C to hotel status Medications at Discharge Home Medications vits no.130-ferrous fum 27 mg iron-folic acid 800 mcg tablet ( Vitamin) tab 08/02/22 ibuprofen 600 mg tablet 600 mg PO Q6H #0 tabs 08/06/22 labetalol 100 mg tablet 200 mg PO BID #60 tabs 08/06/22 oxycodone 5 mg tablet 5 mg PO Q6H 7 days #10 tabs 08/06/22 sennosides 8.6 mg-docusate sodium 50 mg tablet (Stool Softener-Stimulant Laxative) 1 - 2 tab PO DAILY #30 tabs 08/06/22 Hospital Course Summary of Care Provided Hospital Course: Presented on 08/02/22 for Induction of labor for preeclampsia. LTCS for arrest of decent. Magnesium for 24 hr post delivery for preeclampsia. Acute blood loss anemia. Discharge on postoperative day #3. Weight / BMI Weight Weight: 188 lb 11.451 oz Body Mass Index (BMI) 29.5 ABG / Lab / Microbiology Data Result Diagrams: 08/05/22 05:15 08/02/22 16:40 Microbiology: Microbiology 08/02/22 20:05 Nasal Secretion SARS-CoV-2 Antigen (Rapid) - Final Meaningful Use Info Meaningful Use Diagnoses (Choose all that apply): None applicable Discharge Plan Admission Admit Date/Time: 08/02/22 16:50 Primary Reason for Your Visit: section, preeclampsia Attending Provider: Esha Neri Primary Care Provider: Minor Rucker Instructions Additional Instructions / Restrictions: Check blood pressure twice a day. If 150/90 to call. Discharge Orders/Prescriptions Prescriptions: New ibuprofen 600 mg Tablet 600 mg PO Q6H Qty: 0 0RF labetalol 100 mg Tablet 200 mg PO BID Qty: 60 0RF oxycodone 5 mg Tablet 5 mg PO Q6H 7 Days Qty: 10 0RF sennosides-docusate sodium [Stool Softener-Stimulant Laxat] 8.6-50 mg Tablet 1 - 2 tab PO DAILY Qty: 30 0RF Continued Vitamin 27 mg iron- 800 mcg tablet Label Comments: take 1 tablet by mouth once daily as directed Referrals / Follow Up: Ly Diamond CNM [Med Staff - Adv Practice Prof] - Minor Rucker DO [Primary Care Provider] - Esha Neri MD [Med Staff - Active Staff] - (Follow up in 4 days for blood pressure and incision check) Disposition Disposition (needs filled in before D/C Order can be placed): Home, Self Care
[2022-08-06 21:40] VITALS: BP 150/92; PULSE 81; RESP 18; TEMP 36.9; O2SAT 97
== END 2022-08-06 23:20 | disposition home or self-care (01) | DRG 540 ==
LOC: WP 16:54
PROVIDERS: Obstetrics & Gynecology; Admitting Provider Obstetrics & Gynecology; PCP Pediatrics; Visit Provider Obstetrics & Gynecology
DX: O14.14 Severe pre-eclampsia complicating childbirth (principal); D62 Acute posthemorrhagic anemia; J45.909 Unspecified asthma, uncomplicated; O99.03 Anemia complicating the puerperium; O99.52 Diseases of the respiratory system complicating childbirth; O64.8XX0 Obstructed labor due to other malposition and malpresentation, not applicable or unspecified; O65.4 Obstructed labor due to fetopelvic disproportion, unspecified; Z20.822 Contact with and (suspected) exposure to COVID-19; Z3A.38 38 weeks gestation of pregnancy; Z37.0 Single live birth; Z79.899 Other long term (current) drug therapy; Z87.891 Personal history of nicotine dependence
CPT/HCPCS: 59025; 59050; 82565; 84450; 84460; 84550; 85027; 86850; 86900; 86901; 87811; 99218; 99251; J7050; J7120; A4216; G0378; G0463; J2405; J2916

== ENCOUNTER 2022-08-07 16:10 | Outpatient (CLI) | payer MEDICAID, SELFPAY ==
[2022-08-07] VITALS (7 sets, daily range): BP systolic 134–144; BP diastolic 85–94; PULSE 81–93; TEMP 36.6; BMI 27.7
--- NOTE | 2022-08-07 16:41 | OB.TRI.NOTE ---
HPI - General HPI Narrative LORE BUTLER, is a 21 F 4 day post section for preeclampsia who presents with BP reading of 150/110. Patient is monitoring BP and had high reading. Denies any headache, vision changes, RUQ pain or swelling. Patient received 24 hours of Magnesium sulfate post delivery and is taking Labetalol 200 mg BID as prescribed. PFSH PFS Medical History (Updated 08/07/22 @ 16:44 by Coretta Luna CNM) Asthma Depression Preeclampsia Home Medications vits no.130-ferrous fum 27 mg iron-folic acid 800 mcg tablet ( Vitamin) tab 08/02/22 [History Last Taken Unknown] ibuprofen 600 mg tablet 600 mg PO Q6H #0 tabs 08/06/22 [Rx Last Taken 08/07/22 15:00] labetalol 100 mg tablet 200 mg PO BID #60 tabs 08/06/22 [Rx Last Taken 08/07/22 15:30] oxycodone 5 mg tablet 5 mg PO Q6H 7 days #10 tabs 08/06/22 [Rx Last Taken Unknown] sennosides 8.6 mg-docusate sodium 50 mg tablet (Stool Softener-Stimulant Laxative) 1 - 2 tab PO DAILY #30 tabs 08/06/22 [Rx Last Taken Unknown] Allergy/AdvReac Type Severity Reaction Status Date / Time No Known Allergies Allergy Verified 08/07/22 16:59 Social History Smoking Status: Former smoker History Elective abortions Hx Para 0 Spontaneous abortions Hx # Term Pregnancies Ectopic pregnancies Hx # Pregnancies Multiple births # of living children ROS Eyes Eyes: Denies blurry vision Cardiovascular Cardiovascular: Reports none; Denies chest pain at rest, chest pain with activity or dizziness Respiratory/Chest Respiratory/Chest: Denies cough or dyspnea Gastrointestinal Gastrointestinal: Reports none and other; Denies diarrhea or vomiting Genitourinary Genitourinary: Denies dysuria Musculoskeletal Musculoskeletal: Reports none Integumentary Integumentary: Reports none; Denies rash Neurologic Neurologic: Denies dizziness, headache(s) or other visual disturbances Psychiatric Psychiatric: Reports none Assessment & Plan (1) Elevated blood pressure reading: (2) Delivery by section: (3) History of pre-eclampsia: PLAN: Plan Serial blood pressures within normal limits PIH labs normal Labetalol increased to 200 mg PO TID D/c home with follow up in office Dr. Neri involved in plan of care
[2022-08-07 17:13] LABS: Hematocrit 27.2 % (37-47); Hemoglobin 8.6 g/dL (12.0-15.0); Mean Corp Hgb Conc 31.6 g/dL (32-36); Mean Corpuscular Hgb 27.9 pg (27.0-32.0); Mean Corpuscular Volume 88.3 fL (81-99); Platelet Count 329 K/mm3 (150-450); RBC Distribution Width CV 15.1 % (11.6-14.6); RBC Distribution Width SD 47.3 fl (35.1-43.9); Red Blood Count 3.08 M/mm3 (4.2-5.4); White Blood Count 11.7 K/mm3 (4.4-11.0)
[2022-08-07 17:43] LABS: AST(SGOT) 42 U/L (15-37); Alanine Aminotransfer ALT/SGPT 45 U/L (13-56); Creatinine, Serum 0.76 mg/dL (0.55-1.02); EST Glomerular Filtration Rate 102 mL/min (>60); Est Glom Filt Rate - Afr Amer 124 mL/min (>60); Estimated Creatinine Clearance 114.82 ml/min; Uric Acid 7.1 mg/dL (2.6-6.0)
== END 2022-08-07 19:00 | disposition home or self-care (01) ==
LOC: WPOUT 16:26 → WP 16:26
PROVIDERS: PCP Pediatrics; Visit Provider Advanced Practice Midwife
DX: R03.0 Elevated blood-pressure reading, without diagnosis of hypertension (principal); Z87.891 Personal history of nicotine dependence
CPT/HCPCS: 82565; 84450; 84460; 84550; 85027; 96372; 99218; G0378

== ENCOUNTER 2023-03-19 10:35 | Outpatient (CLI) | payer MEDICAID, SELFPAY ==
[2023-03-19] VITALS (8 sets, daily range): BP systolic 118; BP diastolic 62; PULSE 83–104; TEMP 36.9; O2SAT 96–97
--- NOTE | 2023-03-24 10:09 | OB.TRI.NOTE ---
HPI - General HPI Narrative LORE BUTLER, is a 22 F who presents for N/V and back pain. KIM:08/01/23 PFSH PFSH Medical History (Updated 03/24/23 @ 10:13 by Ly Diamond CNM) Asthma Depression Preeclampsia Home Medications vits no.130-ferrous fum 27 mg iron-folic acid 800 mcg tablet ( Vitamin) tab 08/02/22 [History Last Taken Unknown] ibuprofen 600 mg tablet 600 mg PO Q6H #0 tabs 08/06/22 [Rx Last Taken 08/07/22 15:00] labetalol 100 mg tablet 200 mg PO BID #60 tabs 08/06/22 [Rx Last Taken 08/07/22 15:30] oxycodone 5 mg tablet 5 mg PO Q6H 7 days #10 tabs 08/06/22 [Rx Last Taken Unknown] sennosides 8.6 mg-docusate sodium 50 mg tablet (Stool Softener-Stimulant Laxative) 1 - 2 tab PO DAILY #30 tabs 08/06/22 [Rx Last Taken Unknown] Allergy/AdvReac Type Severity Reaction Status Date / Time No Known Allergies Allergy Verified 08/07/22 16:59 Social History Smoking Status: Former smoker History 1 Elective abortions Hx Para 1 Spontaneous abortions Hx # Term Pregnancies Ectopic pregnancies Hx # Pregnancies Multiple births # of living children 1 Assessment & Plan (1) Nausea and vomiting: PLAN: Plan 1) No signs of PTL 2) D/C home
== END 2023-03-19 11:35 | disposition home or self-care (01) ==
LOC: WPOUT 10:44 → WP 10:45
PROVIDERS: PCP Pediatrics; Visit Provider Advanced Practice Midwife
DX: O21.9 Vomiting of pregnancy, unspecified (principal); Z87.891 Personal history of nicotine dependence
CPT/HCPCS: 59050; 99221; G0378

== ENCOUNTER 2023-05-06 00:30 | Outpatient (CLI) | payer MEDICAID, SELFPAY ==
[2023-05-06 00:42] VITALS: BP 133/73; PULSE 86; O2SAT 98
[2023-05-06 00:46] VITALS: TEMP 37.1
[2023-05-06 00:54] VITALS: BMI 28.2
[2023-05-06 01:03] LABS: Bacteria 0 SEEN /hpf (None Seen); Mucous, Urine 0 SEEN /hpf (<or=2+); Red Blood Cells-Urine 0 SEEN /hpf (0-5); Squamous Epithelial Cells - UA 0 SEEN /hpf (5-10); White Blood Cells 0 SEEN /hpf (0-5)
[2023-05-06 01:21] LABS: Color, Urine Yellow (Yellow); Glucose, Dipstick Normal (Normal); Ketone-Dipstick Negative (Negative); Leukocyte Esterase-Dipstick 25 /ul (Negative); Nitrite-Dipstick Negative (Negative); Occult Blood-Urine Negative /ul (Negative); Protein-Dipstick Negative (Negative); Specific Gravity, Urine 1.015 (1.002-1.030); Urine Bilirubin Dipstick Negative (Negative); Urine Clarity Clear (Clear); Urine Urobilinogen Normal (Normal)
[2023-05-06] MEDS: Acetaminophen 500 MG Tablet 1000 MG PO (02:41)
[2023-05-06 03:49] VITALS: PULSE 87; O2SAT 97
--- NOTE | 2023-05-07 13:27 | OB.TRI.NOTE ---
HPI - General General Date of Service: 05/06/23 HPI Narrative OLRE BUTLER, is a 22 F who presents Maternal Data Information Final KIM: 08/01/23 Gestational age: 27&4 PFSH PFSH Medical History (Updated 05/07/23 @ 13:[address] Esha Neri MD) Asthma Depression Preeclampsia Home Medications vits no.130-ferrous fum 27 mg iron-folic acid 800 mcg tablet ( Vitamin) tab 08/02/22 [History Last Taken Unknown] ibuprofen 600 mg tablet 600 mg PO Q6H #0 tabs 08/06/22 [Rx Last Taken 08/07/22 15:00] labetalol 100 mg tablet 200 mg (2 x 100 mg) PO BID #60 tabs 08/06/22 [Rx Last Taken 08/07/22 15:30] oxycodone 5 mg tablet 5 mg PO Q6H 7 days #10 tabs 08/06/22 [Rx Last Taken Unknown] sennosides 8.6 mg-docusate sodium 50 mg tablet (Stool Softener-Stimulant Laxative) 1 - 2 tab PO DAILY #30 tabs 08/06/22 [Rx Last Taken Unknown] aspirin 81 mg tablet,delayed release (Adult Aspirin Regimen) 81 mg PO DAILY 05/06/23 [History Last Taken Unknown] Allergy/AdvReac Type Severity Reaction Status Date / Time No Known Allergies Allergy Verified 05/06/23 00:50 Social History Smoking Status: Former smoker History 1 Elective abortions Hx Para 1 Spontaneous abortions Hx # Term Pregnancies Ectopic pregnancies Hx # Pregnancies Multiple births # of living children 1 NST FHR Rate Baby A Baseline: 135 Variability:: Moderate Accelerations:: 15 x 15 Decelerations:: Variable Uterine Activity:: quiet Assessment & Plan (1) Threatened labor: QUALIFIERS: Trimester: third trimester Qualified Code(s): O47.03 - False labor before 37 completed weeks of gestation, third trimester COMMENT: @ 27&4 PLAN: Plan reactive NST
== END 2023-05-06 04:20 | disposition home or self-care (01) ==
LOC: WPOUT 00:35 → WP 00:36
PROVIDERS: PCP Pediatrics; Referring Provider Obstetrics & Gynecology; Visit Provider Obstetrics & Gynecology
DX: O47.02 False labor before 37 completed weeks of gestation, second trimester (principal); Z79.82 Long term (current) use of aspirin; Z79.899 Other long term (current) drug therapy; Z3A.27 27 weeks gestation of pregnancy; Z87.891 Personal history of nicotine dependence
CPT/HCPCS: 59050; 81001

== ENCOUNTER 2023-06-05 13:21 | Emergency (ER) | payer MEDICAID, SELFPAY ==
[2023-06-05 13:22] VITALS: BP 128/73; PULSE 83; RESP 18; TEMP 36.3; O2SAT 95
--- NOTE | 2023-06-05 14:04 | EKG12_ITS ---
Test Reason : Blood Pressure : / mmHG Vent. Rate : 075 BPM Atrial Rate : 075 BPM P-R Int : 146 ms QRS Dur : 106 ms QT Int : 378 ms P-R-T Axes : 064 035 036 degrees QTc Int : 422 ms Normal sinus rhythm with sinus arrhythmia Normal ECG Confirmed by SEBLE MAHMOOD ([id number]), sports editor LESLEY WEAVER ([id number]) on 06/06/2023 11:22:59 AM Referred By: Confirmed By:SEBLE MAHMOOD
--- NOTE | 2023-06-05 14:18 | ED.VIS.DYS ---
HPI History of Present Illness Chief Complaint: Shortness of Breath Narrative Narrative: 22-year-old female presenting with shortness of breath which comes and goes. At times she feels like she is having palpitations as well. She is not having chest pain. Denies a sharp pleuritic component. She states has been have a lot of cramping this week which is lower in the abdomen. She is currently 32 weeks . She called her HOSPITAL PERSONNEL DIRECTOR who stated that this did not sound anything related and request her to come to the ER. No history of DVT/PE. Her only risk factors . Currently not tachycardic, tachypneic, hypoxic. Her blood pressure is normal. Patient was concerned about preeclampsia but her blood pressure is now 108/63 in the room. No fevers or chills. No urinary or vaginal complaints PFSH PFSH Medical History Asthma Depression Preeclampsia Home Medications vits no.130-ferrous fum 27 mg iron-folic acid 800 mcg tablet ( Vitamin) tab 08/02/22 [History Last Taken Unknown] sennosides 8.6 mg-docusate sodium 50 mg tablet (Stool Softener-Stimulant Laxative) 1 - 2 tab PO DAILY #30 tabs 08/06/22 [Rx Last Taken Unknown] aspirin 81 mg tablet,delayed release (Adult Aspirin Regimen) 81 mg PO DAILY 05/06/23 [History Last Taken 06/04/23 08:00 81 mg] ferrous sulfate 325 mg (65 mg iron) tablet (iron) 325 mg PO QODAY 06/05/23 [History Last Taken 06/03/23 08:00 325 mg] Allergy/AdvReac Type Severity Reaction Status Date / Time No Known Allergies Allergy Verified 06/05/23 16:25 Social History Smoking Status: Former smoker EXAM Physical Exam Const Vital Signs: 06/05/23 13:22 06/05/23 14:05 06/05/23 14:27 Temperature 97.3 F L Temperature Source Temporal Pulse Rate 83 Respiratory Rate 18 Respiratory Effort Short of Breath Blood Pressure 128/73 H Blood Pressure Mean 91 Pulse Ox 95 Oxygen Delivery Method Room Air Room Air Room Air 06/05/23 15:22 Temperature Temperature Source Pulse Rate 80 Respiratory Rate 20 H Respiratory Effort Blood Pressure 118/75 Blood Pressure Mean 89 Pulse Ox 95 Oxygen Delivery Method Room Air MDM MDM MDM Narrative Medical decision making narrative: Patient presenting shortness of breath. She is currently 32 weeks . Patient's lungs are clear to auscultation. Vital signs are completely normal. She not hypoxic or tachypneic. She states it seems to come in waves. He is also complaining of some pelvic cramping this week without any vaginal bleeding or loss of fluid. This is resolved currently she does not have either symptom Right now. CBC was obtained to assess white blood cell count, hemoglobin, platelets, differential. These were all baseline. BMP shows normal renal function and electrolytes. High-sensitivity troponin less than 3 so I do not think he is a delta troponin further imaging. Patient not complaining of any sharp pleuritic pain or chest pain whatsoever. She is only saying palpitations and shortness of breath with this intermittent and I do not believe she has a PE based on the symptoms. Urinalysis negative for infection. EKG shows a normal sinus rhythm with a ventricular to 75 bpm without sign of ischemic change or ectopy. heart tones 154. Discussed with OB triage as the patient wants to be evaluated down there. After speaking with them it sounds like HOSPITAL PERSONNEL DIRECTOR wanted to have her transferred down to the OB triage as well they just wanted to get medically cleared first. Patient is cleared for this. She is discharged stable condition. Impression: 1. Dyspnea 2. Palpitations Lab Data Attestation: I reviewed the patient's lab results. Labs: Laboratory Results - last 24 hr 06/05/23 06/05/23 14:22 15:10 WBC 9.8 RBC 3.89 L Hgb 10.5 L Hct 33.0 L MCV 84.8 MCH 27.0 MCHC 31.8 L RDW Std Deviation 49.6 H RDW Coeff of Sandra 16.0 H Plt Count 241 MPV 10.7 Immature Gran % (Auto) 0.500 Neut % (Auto) 72.1 H Lymph % (Auto) 20.1 [place] % (Auto) 6.0 Eos % (Auto) 1.1 Baso % (Auto) 0.2 Absolute Neuts (auto) 7.1 Absolute Lymphs (auto) 1.97 Nucleated RBC % 0 Sodium 138 Potassium 3.4 L Chloride 107 Carbon Dioxide 24.0 Anion Gap 7 BUN 7 Creatinine 0.50 L Estim Creat Clear Calc 166.62 Est GFR (MDRD) Af Amer 197 Est GFR (MDRD) Non-Af 163 BUN/Creatinine Ratio 13.9 Glucose 126 H Calcium 8.8 Troponin I High Sens < 3 L Urine Color Yellow Urine Clarity Sl. Cloudy Urine pH 7.0 Ur Specific [place] 1.020 Urine Protein 15 H Urine Glucose (UA) 50 H Urine Ketones 5 H Urine Occult Blood 10 H Urine Nitrite Negative Urine Bilirubin Negative Urine Urobilinogen Normal Ur Leukocyte Esterase 100 H Urine RBC 0-5 SEEN Urine WBC 5-10 SEEN Ur Squamous Epith Cells 10-25 SEEN Urine Bacteria 2+ Urine Mucus 1+ Radiography Diagnostic Testing: Clinical Impression(s) from Imaging Studies Chest X-Ray 06/05/23 14:35 IMPRESSION: Normal x-ray examination of the chest. Electronically Signed: Bradly Garcia MD at 14:58 EDT Reading Location ID and State: [facility] / [place] , Service support , Discharge Plan Triage Chief Complaint: Shortness of Breath Other Complaint: Palpitations ED Provider: Ned Antoine Dx/Rx/DC Orders Instructions: ED Dyspnea, ED Palpitations Prescriptions: No Action Vitamin 27 mg iron- 800 mcg tablet Patient Comments: take 1 tablet by mouth once daily as directed sennosides-docusate sodium [Stool Softener-Stimulant Laxat] 8.6-50 mg Tablet 1 - 2 tab PO DAILY Qty: 30 0RF aspirin [Adult Aspirin Regimen] 81 mg tablet,delayed release (DR/EC) 81 mg PO DAILY ferrous sulfate [iron] 325 mg (65 mg iron) tablet 325 mg PO QODAY Primary Care Provider: Care Physician,No Primary Referrals: Kate Farias DO [Med Staff - Active Staff] - 2 Days Care Physician,No Primary [Primary Care Provider] - Disposition Disposition: Home, Self Care Discharge Date/Time: 06/05/23 15:55
[2023-06-05 14:27] VITALS: O2SAT 96; BMI 28.3
--- NOTE | 2023-06-05 14:27 | NURSING ---
NO OLD EKGS
[2023-06-05 14:30] LABS: Absolute Lymphocyte Count 1.97 X10^3/uL (0.83-4.51); Absolute Neutrophil Count 7.1 X10^3/uL (2.0-7.7); Basophil# 0.02 X10^3/uL; Basophil% 0.2 % (0-1); Eosinophil# 0.11 X10^3/uL; Eosinophils% 1.1 % (0-5); Hemoglobin 10.5 g/dL (12.0-15.0); Lymphocyte # 1.97 X10^3/ul (0.83-4.51); Lymphocyte % 20.1 % (19-41); Mean Corp Hgb Conc 31.8 g/dL (32-36); Mean Corpuscular Volume 84.8 fL (81-99); Mean Platelet Vol. 10.7 fl (6.2-12.0); Monocyte# 0.59 X10^3/uL; NRBC Flagged by Analyzer 0 % (0-5); Neutrophil # 7.06 X10^3/uL (2.7-7.7); Neutrophil % 72.1 % (47-70); Platelet Count 241 K/mm3 (150-450); RBC Distribution Width SD 49.6 fl (35.1-43.9); Red Blood Count 3.89 M/mm3 (4.2-5.4); White Blood Count 9.8 K/mm3 (4.4-11.0)
--- NOTE | 2023-06-05 14:35 | RAD_ITS ---
STUDY: X-RAY CHEST REASON FOR EXAM: Female, 22 years old. Chest pain TECHNIQUE: Single AP portable view of the chest. COMPARISON: None. FINDINGS: EKG electrodes are seen. The lungs are clear and expanded. There is no demonstrated pleural abnormality. Normal size heart. Normal mediastinum and j luis. Normal visualized pulmonary arteries. Normal visualized aortic arch and descending thoracic aorta. Normal visualized thoracic spine. Normal visualized ribs, clavicles, and shoulders. There is no demonstrated abnormality of the visualized soft tissue structures of the upper abdomen. RAD/Chest 1 View (Portable) IMPRESSION: Normal x-ray examination of the chest. Electronically Signed: Bradly Garcia MD at 14:58 EDT ,
[2023-06-05 14:47] LABS: Anion Gap 7 (5-15); BUN 7 mg/dL (7-18); BUN/Creat Ratio 13.9 RATIO (10-20); Calcium,Total 8.8 mg/dL (8.5-10.1); Chloride 107 mmol/L (98-107); EST Glomerular Filtration Rate 163 mL/min (>60); Est Glom Filt Rate - Afr Amer 197 mL/min (>60); Estimated Creatinine Clearance 166.62 ml/min; Glucose 126 mg/dL (74-106); Potassium 3.4 mmol/L (3.5-5.1); Sodium Level 138 mmol/L (136-145); Troponin-I HS < 3 pg/mL (3.0-54.0)
[2023-06-05 15:22] VITALS: BP 118/75; PULSE 80; RESP 20; O2SAT 95
[2023-06-05 15:24] LABS: Color, Urine Yellow (Yellow); Glucose, Dipstick 50 mg/dl (Normal); Ketone-Dipstick 5 mg/dl (Negative); Leukocyte Esterase-Dipstick 100 /ul (Negative); Nitrite-Dipstick Negative (Negative); Occult Blood-Urine 10 /ul (Negative); Protein-Dipstick 15 mg/dl (Negative); Urine Bilirubin Dipstick Negative (Negative); Urine Clarity Sl. Cloudy (Clear); Urine Urobilinogen Normal (Normal)
[2023-06-05 15:31] LABS: Bacteria 2+ /hpf (None Seen); Mucous, Urine 1+ /hpf (<or=2+); Red Blood Cells-Urine 0-5 SEEN /hpf (0-5); Squamous Epithelial Cells - UA 10-25 SEEN /hpf (5-10); White Blood Cells 5-10 SEEN /hpf (0-5)
== END 2023-06-05 15:55 | disposition home or self-care (01) ==
PROVIDERS: Emergency Provider Student in an Organized Health Care Education/Training Program; Visit Provider Student in an Organized Health Care Education/Training Program
DX: O47.03 False labor before 37 completed weeks of gestation, third trimester (principal); O99.891 Other specified diseases and conditions complicating pregnancy; R00.2 Palpitations; R06.00 Dyspnea, unspecified; Z79.82 Long term (current) use of aspirin; Z87.891 Personal history of nicotine dependence; Z3A.32 32 weeks gestation of pregnancy
CPT/HCPCS: G0378 ×2; 59025; 59050; 71045; 80048; 81001; 84484; 85025; 93005; 99221; 99284; A4216

== ENCOUNTER 2023-06-05 16:05 | Outpatient (CLI) | payer MEDICAID, SELFPAY ==
[2023-06-05 16:22] VITALS: BMI 28.8
[2023-06-05 16:29] VITALS: BP 133/66; PULSE 80
[2023-06-05 17:53] VITALS: BP 111/63; PULSE 82
--- NOTE | 2023-06-05 20:33 | OB.TRI.NOTE ---
HPI - General General Date of Admission: 06/05/23 Date of Service: 06/05/23 Chief Complaint: abd. pain HPI Narrative LORE BUTLER, is a 22 F who presented to the emergency with multiple complaints. She was cleared by the emergency room and sent to labor and delivery for abdominal pain. She denied any nausea or vomiting, diarrhea or constipation. She was afebrile. [facility] Medical History (Updated 06/05/23 @ 20:[address] Inga Jason MD) Asthma Depression Preeclampsia Home Medications vits no.130-ferrous fum 27 mg iron-folic acid 800 mcg tablet ( Vitamin) tab 08/02/22 [History Last Taken Unknown] sennosides 8.6 mg-docusate sodium 50 mg tablet (Stool Softener-Stimulant Laxative) 1 - 2 tab PO DAILY #30 tabs 08/06/22 [Rx Last Taken Unknown] aspirin 81 mg tablet,delayed release (Adult Aspirin Regimen) 81 mg PO DAILY 05/06/23 [History Last Taken 06/04/23 08:00 81 mg] ferrous sulfate 325 mg (65 mg iron) tablet (iron) 325 mg PO QODAY 06/05/23 [History Last Taken 06/03/23 08:00 325 mg] Allergy/AdvReac Type Severity Reaction Status Date / Time No Known Allergies Allergy Verified 06/05/23 16:25 Social History Smoking Status: Former smoker History 1 Elective abortions Hx Para 1 Spontaneous abortions Hx # Term Pregnancies Ectopic pregnancies Hx # Pregnancies Multiple births # of living children 1 NST FHR Rate Baby A Baseline: 135 Variability:: Moderate Accelerations:: 15 x 15 Decelerations:: None NST Reactive:: Yes FHR Category:: Category I Uterine Activity:: no regular ctxs Assessment & Plan (1) Threatened labor: QUALIFIERS: Trimester: third trimester Qualified Code(s): O47.03 - False labor before 37 completed weeks of gestation, third trimester PLAN: 22-year-old high risk multigravida G2, P1 at 31 6/7 weeks for abdominal pain. No evidence of labor. No evidence of acute etiology for pain. She was cleared for her other complaints in the emergency room. No evidence of labor. Nonstress test is reactive. Discharged home use Tylenol as needed for pain. Follow-up in the office or return as needed.
== END 2023-06-05 18:50 | disposition home or self-care (01) ==
LOC: WPOUT 16:09 → WP 16:10
PROVIDERS: Referring Provider Obstetrics & Gynecology; Visit Provider Obstetrics & Gynecology
DX: O47.03 False labor before 37 completed weeks of gestation, third trimester (principal); Z79.82 Long term (current) use of aspirin; Z87.891 Personal history of nicotine dependence; Z3A.31 31 weeks gestation of pregnancy
CPT/HCPCS: 59025; 59050 ×2; G0378 ×2; 99221

== ENCOUNTER 2023-06-30 14:10 | Outpatient (CLI) | payer MEDICAID, SELFPAY ==
[2023-06-30 14:41] VITALS: BMI 28.5
[2023-06-30 14:44] VITALS: BP 122/72; PULSE 95; TEMP 37.4; O2SAT 97
--- NOTE | 2023-06-30 20:58 | OB.TRI.HP_ITS ---
HPI - General HPI Narrative LORE BUTLER, is a 22 F at 35.3 weeks gestation who presents to triage because she feels like the baby is going to fall out of her vagina. Denies any loss of fluid or vaginal bleeding. Positive movement. Repeat section. Maternal Data Information KIM Calculator Estimated Delivery Date Method Current WG Current Estimate 08/01/23 Manual 35w 3d PFSH PFS Medical History (Updated 06/30/23 @ 21:07 by Coretta Luna CNM) Asthma Depression Preeclampsia Home Medications vits no.130-ferrous fum 27 mg iron-folic acid 800 mcg tablet ( Vitamin) tab PO DAILY 08/02/22 [History Last Taken 06/30/23] aspirin 81 mg tablet,delayed release (Adult Aspirin Regimen) 81 mg PO DAILY 05/06/23 [History Last Taken 06/04/23 08:00 81 mg] ferrous sulfate 325 mg (65 mg iron) tablet (iron) 325 mg PO QODAY 06/05/23 [ History Last Taken 06/03/23 08:00 325 mg] Allergy/AdvReac Type Severity Reaction Status Date / Time Seasonal Allergies: Uncoded Allergy Mild Itching Verified 06/30/23 14:37 Social History Smoking Status: Former smoker History 1 Elective abortions Hx Para 1 Spontaneous abortions Hx # Term Pregnancies Ectopic pregnancies Hx # Pregnancies Multiple births # of living children 1 ROS Eyes Eyes: Denies blurry vision Cardiovascular Cardiovascular: Reports none; Denies chest pain at rest, chest pain with activi ty or dizziness Respiratory/Chest Respiratory/Chest: Denies cough or dyspnea Gastrointestinal Gastrointestinal: Reports none and other; Denies diarrhea or vomiting Genitourinary Genitourinary: Denies dysuria Musculoskeletal Musculoskeletal: Reports none Integumentary Integumentary: Reports none; Denies rash Neurologic Neurologic: Denies dizziness, headache(s) or other visual disturbances Psychiatric Psychiatric: Reports none Physical Exam Const alert and no apparent distress General Appearance: cooperative Orientation / Consciousness: awake Exam Limitations: no limitations HEENT normocephalic Eyes General Eye: normal appearance of both eyes Neck full ROM Chest inspection of chest normal Resp normal respiratory effort and normal air movement Effort and Inspection: symmetric chest movement Auscultation: clear to auscultation bilaterally Cardio regular rate GI soft to palpation, non-tender and non-distended Inspection: and other Back/Spine normal ROM Extremity full ROM, normal capillary refill and no calf tenderness Skin no rashes or lesions noted Neuro oriented x3 and CN's II-XII intact bilaterally Psych mental status grossly normal NST FHR Rate Baby A Baseline: 135 Variability:: Moderate Accelerations:: 15 x 15 Decelerations:: None NST Reactive:: Yes FHR Category:: Category I Uterine Activity:: None Assessment & Plan (1) Threatened labor: QUALIFIERS: Trimester: third trimester Qualified Code(s): O47.03 - False labor before 37 completed weeks of gestation, third trimester (2) History of : (3) 35 weeks gestation of : (4) Pelvic pressure in : PLAN: Plan CE- closed / thick / high NST reactive, Cat. 1 tracing Reviewed labor precautions and when to call provider Pt. desires discharge home- will follow up in office
== END 2023-06-30 15:05 | disposition home or self-care (01) ==
LOC: WPOUT 14:18 → WP 14:20
PROVIDERS: Referring Provider Advanced Practice Midwife; Visit Provider Advanced Practice Midwife
DX: O47.03 False labor before 37 completed weeks of gestation, third trimester (principal); Z79.82 Long term (current) use of aspirin; Z3A.35 35 weeks gestation of pregnancy; Z87.891 Personal history of nicotine dependence
CPT/HCPCS: 59025; 59050; 99221; G0378

== ENCOUNTER 2023-07-25 04:55 | Inpatient (IN) | payer MEDICAID, SELFPAY ==
[2023-07-25] VITALS (18 sets, daily range): BP systolic 99–139; BP diastolic 54–79; PULSE 67–94; RESP 12–21; TEMP 35.7–36.6; O2SAT 95–98; BMI 29.2
[2023-07-25] MEDS: Lactated Ringers 1,000 ML 999 ML IV (05:45)
[2023-07-25] MEDS: Acetaminophen 500 MG Tablet 1000 MG PO ×4 (05:46→23:56)
[2023-07-25 05:53] LABS: Absolute Lymphocyte Count 3.32 X10^3/uL (0.83-4.51); Absolute Neutrophil Count 8.7 X10^3/uL (2.0-7.7); Basophil# 0.05 X10^3/uL; Basophil% 0.4 % (0-1); Eosinophil# 0.11 X10^3/uL; Eosinophils% 0.8 % (0-5); Hematocrit 36.3 % (37-47); Lymphocyte # 3.32 X10^3/ul (0.83-4.51); Lymphocyte % 25.4 % (19-41); Mean Corp Hgb Conc 33.1 g/dL (32-36); Mean Corpuscular Volume 84.8 fL (81-99); Mean Platelet Vol. 11.6 fl (6.2-12.0); Monocyte# 0.84 X10^3/uL; Monocyte% 6.4 % (0-10); NRBC Flagged by Analyzer 0 % (0-5); Neutrophil % 66.7 % (47-70); Platelet Count 225 K/mm3 (150-450); RBC Distribution Width CV 15.3 % (11.6-14.6); RBC Distribution Width SD 47.1 fl (35.1-43.9); Red Blood Count 4.28 M/mm3 (4.2-5.4); White Blood Count 13.1 K/mm3 (4.4-11.0)
[2023-07-25] MEDS: Lactated Ringers 1,000 ML 150 ML IV (06:46)
[2023-07-25] MEDS: Sodium Citrate/Citric Acid 30 ML UDC PO (07:16)
--- NOTE | 2023-07-25 08:44 | PCM.HP.BLA ---
History and Physical Date of Admission: 07/25/23 DATE OF SERVICE: July 19, 2023 ? PROBLEM: repeat section ? DIAGNOSIS: repeat section ? PAST SURGICAL HISTORY: PAST SURGICAL HISTORYExpand by Default PAST SURGICAL HISTORY Procedure Laterality Date ? DELIVERY ONLY ? 08/03/2022 ? [facility] ? ? PAST MEDICAL HISTORY: PAST MEDICAL HISTORYExpand by Default PAST MEDICAL HISTORY Diagnosis Date ? Anemia ? ? Asthma due to environmental allergies ? ? no inhaler use since age 8 ? depression ? ? Irregular menses ? ? PCOS (polycystic ovarian syndrome) ? ? depression ? ? Preeclampsia ? ? ? SUBJECTIVE: Pt doing well and offers no complaints. No ctx, vb, lof. Good FM ? SOCIAL HISTORY: SOCIAL HISTORYExpand by Default Social History ? Tobacco Use ? Smoking status: Never ? Smokeless tobacco: Never Vaping Use ? Vaping Use: Former ? Quit date: 08/27/2021 ? Substances: Nicotine, Flavoring Substance Use Topics ? Alcohol use: Not Currently ? ? Alcohol/week: 1.0 standard drink of alcohol ? ? Types: 1 Glasses of Wine (5oz) per week ? Drug use: Never ? ? ALLERGIESExpand by Default ALLERGIES Allergen Reactions ? Mold Spores Cough ? Current Outpatient Medications on File Prior to Visit Medication Sig ? Tlnudxgg-Ld-Lxj-Fe-FA tab Take 1 tablet by mouth once daily. ? BABY ASPIRIN ORAL Take 81 mg by mouth once daily. ? vits/Fe gluc/folic ac ( WITHOUT [id number] ORAL) Take by mouth. ? No current facility-administered medications on file prior to visit. ? ? ? OBJECTIVE: ? VITALS: BP 100/60 Wt 186 lb 9.6 oz (84.6 kg) LMP 10/09/2022 (Approximate) BMI 28.79 kg/m? ? HEENT: Normocephalic, atraumatic, Mucus membranes moist without lesions. ? SKIN: No lesions. ? CHEST: No increased resp effort. ? HEART: Regular rate. ? BACK: Nontender with no CVA tenderness. ? ABDOMEN: Soft, non-tender, non-distended, no masses, no hepatosplenomegaly. ? LOWER EXTREMITIES: There was no pitting edema, no palpable cords and no skin changes. ? ? ? ASSESSMENT: repeat section ? PLAN: 1) Discussed repeat section in detail. The rationale for the proposed surgery was discussed in addition to risks, benefits, and alternatives. General pre- and post-operative care was reviewed. Questions were answered. After discussion, the patient indicated a desire to proceed with the planned surgery. ? Kate Farias, DO Assessment & Plan Assessment/Plan (1) 39 weeks gestation of : (2) History of depression: (3) History of : (4) History of pre-eclampsia:
[2023-07-25] MEDS: Oxytocin 15 Units/NS 250ml 15 UNITS/250 ML IV.SOLN 83 UNITS IV (08:45)
[2023-07-25 08:46] LABS: Syphilis Antibodies Non-reactive
--- NOTE | 2023-07-25 08:51 | PCM.OPRPT ---
Problems Associated Problem List Diagnoses (1) 39 weeks gestation of : (2) History of : Report of Operation Date of Procedure: 07/25/23 Pre-Operative Diagnosis: 39 week gestation, single IUP, history prior section Post-Operative Diagnosis: As above Surgery/Procedure Performed:: RLTCS via pfannenstiel incision Description of Surgical Findings:: VMI in cephalic presentation with clear fluid noted. Apgars 9, 9. Normal appearing placenta. Normal appearing uterus and bilateral adnexa. Keloid noted along prior incision. Dense fascia that was adhered to the rectus muscles. Minimal omental adhesions to the peritoneum. Surgeon: Kate Farias supervisor powdered metal: Srikanth ROMAN Type of Anesthesia: Spinal Special Medications: None Specimen's removed: Placenta Drains: [place]ues[place] Estimated Blood Loss (mL): 500 Fluids Replaced: 1000 mL Description of Procedure: The patient was taken to the operating room where spinal anesthesia was induced. She was prepped and draped in the dorsal supine position with a leftward tilt. A Pfannenstiel skin incision was made with a scalpel and this was carried down to the underlying layer of fascia. The fascia was incised in the midline. The fascia was extended laterally using Ingram scissors. The fascia was minimally dissected off the rectus muscles in a cephalad direction. The rectus muscles were in the midline. The peritoneum was entered with combination of sharp and blunt dissection with good visualization of the bladder. Once the peritoneum was entered, the incision was extended bluntly with lateral traction. A bladder blade was inserted. A bladder flap was performed using Metzenbaum scissors and the bladder was retracted away. A low transverse incision was made on the uterus with a scalpel. The uterine incision was extended with traction both cephalad and caudad. Membranes were ruptured for clear fluid. The head was flexed and delivered through the hysterotomy, followed by the shoulders and body of the without any traction, force, or delay. A vigorous viable male was delivered atraumatically and the cord was clamped and cut after a delay. The infant was handed off to the awaiting nursery staff. The placenta was removed with manual extraction. The uterus was exteriorized. The uterus was cleared of all clot and debris. The hysterotomy was closed with 1-0 Vicryl in a running locked fashion. A 2 cm subserosal hematoma was noted at the left corner of the hysterotomy. Pressure was applied for several minutes. The uterus was placed back into the abdomen. The hysterotomy was noted to be hemostatic. The hematoma was noted to be stable in size. Cora was placed over the hysterotomy and lower uterine segment. Minimal omental adhesions were noted again to the anterior peritoneum. Bleeding was noted in the subfascial space where the rectus was in the midline and at the very apex of this separation. 2 [id number] sutures were placed using 3-0 Vicryl for hemostasis in the subfascial space. Hemostasis was noted. The fascia was closed with strata fix in a running fashion. The subcutaneous space was irrigated and made hemostatic with Bovie cautery. The subcutaneous space was reapproximated using 3-0 Vicryl. The skin was closed with 4 Monocryl in a subcuticular fashion. A dressing was placed. Instrument, sponge, needle counts were correct. The patient was taken to recovery in stable condition. The BLOCK SPLITTER OPERATOR was present for the entire case and assisted with draping the patient, delivery of the , closure. Grafts/Implants Used: None Procedure Start Time: 07:44 Procedure Stop Time: 08:35 Complications None Admit VTE Documentation VTE Present on Admission: No VTE Mechan Device Prophylaxis: SCD's
[2023-07-25] MEDS: Ketorolac 30 MG/ML Syringe IV ×3 (09:36→20:59)
[2023-07-25] MEDS: Lactated Ringers 1,000 ML 100 ML IV (12:18)
--- NOTE | 2023-07-25 12:27 | NURSING ---
This nursing home manager was present with Noelle Gorman student nurse while completed medication administration and also reviewed the documentation completed by the student.
[2023-07-25] MEDS: 0.9% Saline Lock 10 ML Syringe IV ×2 (17:50→21:00)
[2023-07-25] MEDS: DiphenhydrAMINE 25 MG Capsule PO (21:37)
[2023-07-26] MEDS: Ketorolac 30 MG/ML Syringe IV (02:56)
[2023-07-26] MEDS: 0.9% Saline Lock 10 ML Syringe IV ×3 (02:58→10:32)
[2023-07-26 04:02] VITALS: BP 119/67; PULSE 65; RESP 16; TEMP 36.4; O2SAT 95
[2023-07-26] MEDS: Acetaminophen 500 MG Tablet 1000 MG PO ×3 (06:01→17:51)
[2023-07-26 06:12] LABS: Hematocrit 30.3 % (37-47); Hemoglobin 9.9 g/dL (12.0-15.0); Mean Corp Hgb Conc 32.7 g/dL (32-36); Mean Corpuscular Hgb 28.3 pg (27.0-32.0); Mean Corpuscular Volume 86.6 fL (81-99); Mean Platelet Vol. 11.3 fl (6.2-12.0); Platelet Count 179 K/mm3 (150-450); RBC Distribution Width CV 15.5 % (11.6-14.6); RBC Distribution Width SD 48.5 fl (35.1-43.9); White Blood Count 12.2 K/mm3 (4.4-11.0)
[2023-07-26 08:00] VITALS: BP 132/78; PULSE 82; RESP 18; TEMP 36.1; O2SAT 95
--- NOTE | 2023-07-26 08:28 | PCM.PN.OB ---
Subjective Subjective Patient is doing well this morning. She offers no complaints. She is ambulating and voiding without difficulty. No lightheadedness or dizziness. No chest pain or shortness of breath. She is tolerating a regular diet without nausea or vomiting. Pain is well controlled. She is resting comfortably. Objective Data Objective Data Vital Signs: Vital Signs Temp Pulse Resp BP Pulse Ox O2 Del Method 97.6 F L 65 16 119/67 95 Room Air 07/26/23 04:02 07/26/23 04:02 07/26/23 04:02 07/26/23 04:02 07/26/23 04:02 07/26/23 04:02 Oxygen Delivery Method Room Air Weight: 186 lb 11.704 oz Body Mass Index (BMI) 29.2 Intake & Output: Intake and Output for Last 24 Hours 07/24/23 07/25/23 07/26/23 23:59 23:59 23:59 Intake Total 1934.17 / 1934.17 Output Total 1250 / 1250 Balance 684.17 / 684.17 Lab / Micro Data 07/26/23 06:05 Labs: Laboratory Results - last 24 hr 07/25/23 05:45: Syphilis Total Ab Non-reactive 07/25/23 10:17: Screen NEGATIVE, Baby's Blood Type A POSITIVE, Baby's YAMEL NEGATIVE 07/26/23 06:05: WBC 12.2 H, RBC 3.50 L, Hgb 9.9 L, Hct 30.3 L, MCV 86.6, MCH 28.3, MCHC 32.7, RDW Std Deviation 48.5 H, RDW Coeff of Sandra 15.5 H, Plt Count 179, MPV 11.3 Physical Exam Const alert and no apparent distress General Appearance: comfortable GI soft to palpation, non-tender and non-distended GI Narrative: FF@U-1 Assessment & Plan (1) History of depression: PLAN: Social work consult (2) Acute blood loss anemia: PLAN: No symptoms of anemia and hemodynamically stable this morning. We will give IV Venofer (3) Delivery by section: PLAN: POD1 from a scheduled repeat section. Doing well. Pain is well controlled. Routine care
[2023-07-26] MEDS: Senna/Docusate Sodium 1 Tablet PO (09:49)
[2023-07-26] MEDS: Iron Sucrose Complex 200 MG in 0.9% Normal Saline (100mL Bag) 100 ML 220 MG IV (09:49)
[2023-07-26] MEDS: Ibuprofen 600 MG Tablet PO ×3 (10:07→22:51)
[2023-07-26 11:19] VITALS: BP 126/79; PULSE 80; RESP 18; TEMP 35.9; O2SAT 96
--- NOTE | 2023-07-26 11:26 | CASEMGMT ---
Social Work Assessment Labor and Delivery Unit Patient Address: [facility] [place] [id number] Phone number: [phone] Date of Referral: 07/25/23 Time of Referral:? 40 Referred By: Kate Farias Date of Intervention: ??07/26/23 Time of Intervention:? 1044 Reason for Referral:? anxiety, depression, father drug addict- not involved in her life Sw completed chart review and acknowledges social work consult entered for maternal mental health history, and family history of addiction. Sw presented to bedside and introduced self to mother of baby (SCOTT- Danny). Sw explained reason for sw involvement. Sw completed psychosocial assessment, provided support and resources and asked MOB to complete an [place] Depression Scale. History obtained from: medical records and mother of baby (SCOTT)??? Household composition: Currently residing in the home is SCOTT, father of baby (SUAD Schmitt), their first child (Jj, : 08/03/22) and now baby boy. MOB states that housing is safe and adequate- no housing concerns at this time. Patient's parent/guardian status:? ?MOB states that she and LUKASZ are high school sweethearts. They have been together since 2019. MOB denies any concerns regarding domestic violence and intimate partner violence. Medical History: SCOTT is 2, para 1- now 2. SCOTT received routine care with [facility] during . SCOTT had repeat scheduled and delivered baby on 07/25/23. Baby boy, named Gregg Garcia, was born weighing 7lb 14oz and his apgars were 9 and 9 at one and five minutes of life respectfully. MOB states that she is breast feeding and this is going ok. ? Educational Status:? Both parents graduated from high school. No college education for either parent. Financial Status: LUKASZ is gainfully employed outside of the home, he works for a company called [employer]. He typically works 3, 15 hour days and has a few days off now that the baby has been born. SCOTT does not work at this time, she is a stay at home mom. Infant Supplies:?? SCOTT reports that she has everything that she needs for baby including: car seat, safe sleep space (separate from older brother), clothes, diapers, wipes and a breast pump. Childcare/Caregiver(s):? SCOTT is the primary caregiver to baby and his older brother. LUKASZ will be able to assist when he is not at work. Transportation:?? Both parents have their drivers license and reliable means of transportation. No transportation barriers reported at this time. Programs/Agencies Involved: ?SCOTT is connected to resources through [employer] [facility] [employer] including insurance and WIC. MOB states that by the time all of their bills are paid they only have $100 available for food. MOB states that they are over income by $300 for SNAP benefits. Sw asked SCOTT if she has ever utilized a food pantry. MOB denied. Sw agreed to provide SCOTT with list of local food pantries that are accessible for her. ?? Children Services/Legal Issues:??No prior history with Children Services. No issues or concerns at this time warranting a referral. Behavioral Health Issues: ??Mental Health History:??SCOTT denies mental health diagnoses for LUKASZ. SCOTT states that she has been diagnosed with anxiety and depression. ?SCOTT states that there are times where she does not have motivation to do anything for a couple of days and just lays on the couch. SCOTT is not prescribed any psychopharmacological medications at this time. SCOTT stated that she did experience the baby blues/ depression for a couple of days after her first son was born. SCOTT stated that her symptoms at that time were that she was very weepy/ tearful, it lasted for a couple of days and then she felt ok. SCOTT stated that her labor the first time was not what she expected as she had to labor and then when complete it was discovered that the baby did not have space to come out so she had to have an unexpected . SCOTT states that this delivery was much different as the was already scheduled. SCOTT states that mentally she feels much better after this delivery. SCOTT did complete an [place] Depression Scale and her score was a 4. Sw provided education and support. Substance Use History:?SCOTT denies substance use prior to or during . ? Family History:???SCOTT states that her father is a repetitive drug/ substance user, but he is not involved in her life. MOB states that she has not seen her dad since she was in second grade. ?? Drug Screens: ??No urine screens observed in chart review. Family/Social Stressors:? The only stressor that MOB discussed at this time is the fact that they do not qualify for food stamps and have run out of money/ food- specifically for FOB who MOB states is picky regarding what he eats. Support Systems: MOB reports that her mom and FOB are her biggest supports. Depression/Shaken Baby/Safe Sleeping:? Sw educated MOB on signs and symptoms of baby blues and depression/ anxiety. Sw encouraged MOB to talk to FOB about ways that he can be supportive and helpful should she experience one or the other. Sw provided MOB with literature on signs and symptoms to look out for. Sw explained that due to MOB mental health history and experiencing the blues in the past, she is more susceptible to experiencing them again. MOB expressed understanding. Sw educated MOB on shaken baby prevention and ABCs of safe sleep. MOB expressed understanding. ASSESSMENT:? SCOTT is admitted following delivery of her second baby. MOB appears comfortable in bed and was receptive to meeting with social studies department chair. MOB states parents have all necessary provisions for baby. MOB indicates she has support found in her mom and FOB. MOB is a stay at home mom and would benefit from getting connected to community mental health supports as preventative measure of experiencing baby blues/ due to history. MOB was talkative during sw assessment. PLAN:? MOB and baby to be discharged when medically ready. ?No other services requested or indicated. Bassam Cai, TIRE REBUILDER, BROACH TROUBLE SHOOTER
[2023-07-26 13:15] VITALS: BP 134/77; PULSE 88; RESP 18; TEMP 36.2; O2SAT 94
--- NOTE | 2023-07-26 14:56 | NURSING ---
Reviewed and agree with student charting Alejandra JENKINS instructor
[2023-07-26] MEDS: oxyCODONE 5 MG Tablet PO (16:24)
[2023-07-26 21:20] VITALS: BP 118/72; PULSE 72; RESP 18; TEMP 36.7; O2SAT 97
[2023-07-27 02:08] VITALS: BP 130/76; PULSE 69; RESP 16; TEMP 36.1; O2SAT 95
[2023-07-27] MEDS: Acetaminophen 500 MG Tablet 1000 MG PO ×4 (02:15→23:27)
[2023-07-27] MEDS: Ibuprofen 600 MG Tablet PO ×4 (04:42→23:27)
[2023-07-27 08:35] VITALS: BP 128/86; PULSE 70; RESP 16; TEMP 36.3; O2SAT 97
[2023-07-27] MEDS: Senna/Docusate Sodium 1 Tablet PO (11:01)
--- NOTE | 2023-07-27 11:37 | PN.OBGYN_ITS ---
Subjective Subjective At bedside to check on patient earlier this morning and patient was asleep. At bedside at this time to check on patient and she is currently breast-feeding and working light with . She offers no complaints today and desires discharge tomorrow. She states she is doing well. Objective Data Objective Data Vital Signs: Vital Signs Temp Pulse Resp BP Pulse Ox O2 Del Method 97.4 F L 70 16 128/86 H 97 Room Air 07/27/23 08:35 07/27/23 08:35 07/27/23 08:35 07/27/23 08:35 07/27/23 08:35 07/27/23 08:35 Oxygen Delivery Method Room Air Weight: 186 lb 11.704 oz Body Mass Index (BMI) 29.2 Intake & Output: Intake and Output for Last 24 Hours 07/25/23 07/26/23 07/27/23 23:59 23:59 23:59 Intake Total 1934.17 / 1934.17 110 / 110 Output Total 1250 / 1250 Balance 684.17 / 684.17 110 / 110 Lab / Micro Data 07/26/23 06:05 Physical Exam Const alert and no apparent distress Constitutional Narrative: Nursing with General Appearance: comfortable Assessment & Plan (1) Delivery by section: PLAN: Pt is postoperative day 2 from a repeat section. Patient and are doing well. She is breast-feeding without complaints. She would li ke to stay another night as her son at home has gastroenteritis. Anticipate discharge to home tomorrow. (2) Acute blood loss anemia:
[2023-07-27 14:35] VITALS: BP 133/79; PULSE 75; RESP 16; TEMP 36.4; O2SAT 95
[2023-07-27 21:00] VITALS: BP 146/83; PULSE 66; RESP 18; TEMP 36.5; O2SAT 97
[2023-07-28 02:30] VITALS: BP 146/84; PULSE 64; RESP 20; TEMP 36.6; O2SAT 97
[2023-07-28] MEDS: Ibuprofen 600 MG Tablet PO ×2 (04:54→11:07)
[2023-07-28] MEDS: Acetaminophen 500 MG Tablet 1000 MG PO ×2 (04:54→11:06)
[2023-07-28 05:02] VITALS: BP 139/82
[2023-07-28 07:57] VITALS: BP 134/96; PULSE 64; RESP 16; TEMP 36.4; O2SAT 97
--- NOTE | 2023-07-28 10:29 | DCINST_ITS ---
Discharge Instructions Diet Discharge Diet: No restrictions Activity Discharge Activity: May Not Drive and May Shower May resume sexual activity in: 6 weeks (nothing in vaginal and no soaking in water) Ice area for (Minutes): 15 Weight Bearing Status: Weight bearing as tolerated Lifting Restrictions: nothing heavier than baby Dressing / Incision Call your doctor if your incision/area has: Continuous Slow Oozing, Sudden Increased Bleeding, Increased Pain/ Swelling, Increased Redness, Foul Smelling Discharge and Swelling at the incision site Call your doctor if you observe: Fever of 101 or Higher, Coldness, Increased Pain, Numbness or Tingling, Change in Color, Inability to urinate, Inability to have a bowel movement, Using more than 1 pad per hour, Shortness of breath, Dizziness, Fainting spells, Swelling in the ankles, Chest pain, Increased palpitations (irregular heartbeat), Calf discomfort, Uncontrolled pain and - (Headache that does not resolve with Tylenol, vision changes, upper abdominal pain, nausea and vomiting, generally not feeling well) Suture Line Care: Avoid Pulling/Pushing and Avoid Pinching/Bending Remove Dressing in: 2 days Cleanse incision/area with: Soap & Water Follow Up Care Please Follow Up With: Kate Farias DO When: 1 week for incision check and blood pressure check 6 weeks for visit Test Results: Test results from this visit will be discussed in further detail at your follow- up appointment, if applicable. Discharge Plan Admission Admit Date/Time: 07/25/23 04:55 Primary Reason for Your Visit: delivery Attending Provider: Kate Farias Primary Care Provider: Care Physician,No Primary Instructions Patient Instructions: After a Discharge Orders/Prescriptions Prescriptions: New oxycodone 5 mg tablet 5 mg PO Q6H PRN (Reason: pain) 7 Days Qty: 10 0RF ibuprofen 600 mg tablet 600 mg PO Q6H PRN (Reason: pain) Qty: 30 0RF docusate sodium [Colace] 100 mg capsule 100 mg PO BID Qty: 30 0RF ferrous sulfate 325 mg (65 mg iron) tablet 325 mg PO QODAY Qty: 30 0RF Continued Vitamin 27 mg iron- 800 mcg tablet PO DAILY Patient Comments: take 1 tablet by mouth once daily as directed Discontinued aspirin [Adult Aspirin Regimen] 81 mg tablet,delayed release (DR/EC) 81 mg PO DAILY ferrous sulfate [iron] 325 mg (65 mg iron) tablet 325 mg PO QODAY Referrals / Follow Up: Care Physician,No Primary [Primary Care Provider] - Disposition Disposition (needs filled in before D/C Order can be placed): Home, Self Care
--- NOTE | 2023-07-28 10:30 | PCM.PN.OB ---
Subjective Subjective Patient is doing well. She denies headache, vision changes, upper abdominal pain, nausea, vomiting. She is ambulating and voiding without difficulty. She denies lightheadedness, dizziness, chest pain, shortness of breath, leg pain. Lochia is normal. She is breast-feeding without complaints. She is tolerating regular diet without nausea or vomiting. She desires discharge today. Objective Data Objective Data Vital Signs: Vital Signs Temp Pulse Resp BP Pulse Ox O2 Del Method 97.6 F L 64 16 134/96 H 97 Room Air 07/28/23 07:57 07/28/23 07:57 07/28/23 07:57 07/28/23 07:57 07/28/23 07:57 07/28/23 07:57 Oxygen Delivery Method Room Air Weight: 186 lb 11.704 oz Body Mass Index (BMI) 29.2 Intake & Output: Intake and Output for Last 24 Hours 07/26/23 07/27/23 07/28/23 23:59 23:59 23:59 Intake Total 110 / 110 Balance 110 / 110 Lab / Micro Data 07/26/23 06:05 Physical Exam Const alert and no apparent distress General Appearance: comfortable HEENT normocephalic Resp normal respiratory effort GI soft to palpation GI Narrative: ATTP, non acute, dressing c/d/i Extremity normal to inspection and no calf tenderness Assessment & Plan (1) Delivery by section: PLAN: Patient is postop day 3 from a scheduled repeat section. She has had a few isolated mild range blood pressures. Overall blood pressures are normal. She denies any symptoms of preeclampsia. Discussed preeclampsia signs and symptoms and reasons to call to come back in to be seen. She has follow-up scheduled this week for an incision check as well as a blood pressure check. Patient are doing well. Breast-feeding without complaints. Discharge instructions were reviewed. (2) Acute blood loss anemia: PLAN: Iron supplement at home. She has no symptoms of anemia.
--- NOTE | 2023-07-28 10:33 | PCM.DC.SUM ---
Providers Date of Admission: 07/25/23 Date of Discharge: 07/28/23 Primary Care Physician: No Primary Care Phys Reason For Visit: REPEAT Diagnosis Discharge Diagnosis (1) Delivery by section: Status: Acute Plan: Patient is postop day 3 from a scheduled repeat section. She has had a few isolated mild range blood pressures. Overall blood pressures are normal. She denies any symptoms of preeclampsia. Discussed preeclampsia signs and symptoms and reasons to call to come back in to be seen. She has follow-up scheduled this week for an incision check as well as a blood pressure check. Patient are doing well. Breast-feeding without complaints. Discharge instructions were reviewed. (2) Acute blood loss anemia: Status: Acute Code(s): D62 - Acute posthemorrhagic anemia Plan: Iron supplement at home. She has no symptoms of anemia. Medications at Discharge Home Medications vits no.130-ferrous fum 27 mg iron-folic acid 800 mcg tablet ( Vitamin) tab PO DAILY 08/02/22 docusate sodium 100 mg capsule (Colace) 100 mg PO BID #30 caps 07/28/23 ferrous sulfate 325 mg (65 mg iron) tablet 325 mg PO QODAY #30 tabs 07/28/23 ibuprofen 600 mg tablet 600 mg PO Q6H PRN pain #30 tabs 07/28/23 oxycodone 5 mg tablet 5 mg PO Q6H PRN pain 7 days #10 tabs 07/28/23 Hospital Course Operations section Summary of Care Provided Hospital Course: The patient presented at 39 weeks gestation for a scheduled repeat section. See operative report for details. She had a few mild range blood pressures, but majority of blood pressures were within normal range . She had no symptoms of preeclampsia. Her pain was well controlled, she was ambulating and voiding without difficulty, and she was tolerating a regular diet on day of discharge. She was discharged home in good condition with follow-up in a few days for an incision check as well as a blood pressure check. Weight / BMI Weight Weight: 186 lb 11.704 oz Body Mass Index (BMI) 29.2 ABG / Lab / Microbiology Data 07/26/23 06:05 D/C Instructions Discharge Diet: No restrictions May resume sexual activity in: 6 weeks (nothing in vaginal and no soaking in water) Ice area for (Minutes): 15 Weight Bearing Status: Weight bearing as tolerated Call your doctor if your incision/area has: Continuous Slow Oozing, Sudden Increased Bleeding, Increased Pain/ Swelling, Increased Redness, Foul Smelling Discharge and Swelling at the incision site Call your doctor if you observe: Fever of 101 or Higher, Coldness, Increased Pain, Numbness or Tingling, Change in Color, Inability to urinate, Inability to have a bowel movement, Using more than 1 pad per hour, Shortness of breath, Dizziness, Fainting spells, Swelling in the ankles, Chest pain, Increased palpitations (irregular heartbeat), Calf discomfort, Uncontrolled pain and - (Headache that does not resolve with Tylenol, vision changes, upper abdominal pain, nausea and vomiting, generally not feeling well) Suture Line Care: Avoid Pulling/Pushing and Avoid Pinching/Bending Cleanse incision/area with: Soap & Water Please Follow Up With: Kate Farias DO When: 1 week for incision check and blood pressure check 6 weeks for visit Meaningful Use Info Meaningful Use Diagnoses (Choose all that apply): None applicable Discharge Plan Admission Admit Date/Time: 07/25/23 04:55 Primary Reason for Your Visit: delivery Attending Provider: Kate Farias Primary Care Provider: Care Physician,Annette Primary Instructions Patient Instructions: After a Discharge Orders/Prescriptions Prescriptions: New oxycodone 5 mg tablet 5 mg PO Q6H PRN (Reason: pain) 7 Days Qty: 10 0RF ibuprofen 600 mg tablet 600 mg PO Q6H PRN (Reason: pain) Qty: 30 0RF docusate sodium [Colace] 100 mg capsule 100 mg PO BID Qty: 30 0RF ferrous sulfate 325 mg (65 mg iron) tablet 325 mg PO QODAY Qty: 30 0RF Continued Vitamin 27 mg iron- 800 mcg tablet PO DAILY Patient Comments: take 1 tablet by mouth once daily as directed Discontinued aspirin [Adult Aspirin Regimen] 81 mg tablet,delayed release (DR/EC) 81 mg PO DAILY ferrous sulfate [iron] 325 mg (65 mg iron) tablet 325 mg PO QODAY Referrals / Follow Up: Care Physician,No Primary [Primary Care Provider] - Disposition Disposition (needs filled in before D/C Order can be placed): Home, Self Care
[2023-07-28 11:05] VITALS: BP 134/90; PULSE 92; RESP 16; TEMP 37.4; O2SAT 97
[2023-07-28] MEDS: Senna/Docusate Sodium 1 Tablet PO (11:07)
== END 2023-07-28 13:15 | disposition home or self-care (01) | DRG 540 ==
PROVIDERS: Admitting Provider Obstetrics & Gynecology; Visit Provider Obstetrics & Gynecology
PROC: 10D00Z1 Extraction of Products of Conception, Low, Open Approach (ICD-10-PCS; CPT 59514; principal; 2023-07-25 07:15)
DX: O34.211 Maternal care for low transverse scar from previous cesarean delivery (principal); D62 Acute posthemorrhagic anemia; O90.81 Anemia of the puerperium; Z37.0 Single live birth; Z3A.39 39 weeks gestation of pregnancy; Z79.82 Long term (current) use of aspirin; Z87.59 Personal history of other complications of pregnancy, childbirth and the puerperium; Z87.891 Personal history of nicotine dependence
CPT/HCPCS: 59025; 59050; 85025; 85027; 85461; 86780; 86850; 86900; 86901; 99221; 99252; J1756; J7120; A4216; G0378; G0463; J2405; J2790

== ENCOUNTER → 2024-07-27 | Outpatient (CLI) | payer MEDICAID, SELFPAY ==
--- NOTE | 2024-07-27 15:10 | US_ITS ---
STUDY: ULTRASOUND BREAST - RIGHT REASON FOR EXAM: Female, 23 years old. Painful lump history patient is and breast-feeding TECHNIQUE: Axial and longitudinal images of the RIGHT breast were performed with a high resolution ultrasound transducer. # OF IMAGES: 21 COMPARISON: None. FINDINGS: RIGHT Breast: Focused sonographic evaluation of the right breast at 1:00, 8 cm from the nipple shows an echogenic poorly defined mass measuring 2.1 x 1.6 x 0.8 cm. There appears to be a dilated duct associated with this which contains echogenic debris. I suspect this likely represents a focal mastitis. Short-term follow-up is recommended to ensure resolution. There is no suspicious shadowing solid lesion, or associated calcifications US/Breast Limited Unilateral IMPRESSION: Palpable lump corresponds to a poorly defined 2.1 x 1.6 x 0.8 cm mass with apparent associated dilated duct. I suspect this likely represents a focal mastitis. Short-term follow-up ultrasound recommended to show resolution ASSESSMENT CATEGORY: BIRADS Category 3: Probably Benign - Short-Interval Follow-up Suggested. A letter regarding these results will be sent to the patient by the facility within 30 days. Electronically Signed: Elliott Espinoza MD at 8:20 EDT ,
== END | disposition home or self-care (01) ==
PROVIDERS: Referring Provider Nurse Practitioner Family; Visit Provider Nurse Practitioner Family
DX: N63.10 Unspecified lump in the right breast, unspecified quadrant (principal)
CPT/HCPCS: 76642

== ENCOUNTER → 2024-08-07 | Outpatient (CLI) | payer MEDICAID, SELFPAY ==
--- NOTE | 2024-08-07 11:11 | US_ITS ---
STUDY: ULTRASOUND BREAST - RIGHT REASON FOR EXAM: Female, 23 years old. Right breast lump. History of mastitis. Prior antibiotic therapy. TECHNIQUE: Axial and longitudinal images of the RIGHT breast were performed with a high resolution ultrasound transducer. # OF IMAGES: 25 COMPARISON: Comparison is made with prior sonogram dated July 27, 2024. FINDINGS: RIGHT Breast: The upper inner quadrant of the right breast was examined with ultrasound. There is a residual 1.9 cm x 1.2 cm x 0.6 cm soft tissue density with dilated ducts. This is at the 1:00 position breast at 8 cm from nipple. US/Breast Limited Unilateral IMPRESSION: Stable examination. Follow-up in 4 weeks is recommended. ASSESSMENT CATEGORY: BIRADS Category 3: Probably Benign - Short-Interval Follow-up Suggested. A letter regarding these results will be sent to the patient by the facility within 30 days. Electronically Signed: Bradly Garcia MD at 10:25 EDT ,
== END | disposition home or self-care (01) ==
LOC: OPUS 11:10
PROVIDERS: Referring Provider Nurse Practitioner Family; Visit Provider Nurse Practitioner Family
DX: N63.10 Unspecified lump in the right breast, unspecified quadrant (principal)
CPT/HCPCS: 76642